=== PATIENT | male | born 1960 | race Caucasian/White ===

== ENCOUNTER 2019-04-11 17:26 | Outpatient (CLI) | payer BC, SELFPAY ==
--- NOTE | ~2019-04-11 | XR_ITS ---
EXAMINATION: XR thoracic spine 3V EXAM DATE: 04/11/2019 18:14 INDICATION: Thoracic pain. TECHNIQUE: Frontal and lateral projections of the thoracic spine. Lateral projection Cervical thora cic spine. There are no prior studies for comparison. FINDINGS: There is mild diffuse thoracic disc disease, there are mild to moderate-sized midthoracic and osteophytes. The vertebral bodies are aligned in the AP dimension. Paraspinal soft tissue is unre markable. There are no bony erosions identified. IMPRESSION: Mild thoracic spondylosis. Reviewed, dictated and finalized at location A. ETING SENIOR RECRUITER IMPRESSION: Mild thoracic spondylosis.
--- NOTE | ~2019-04-11 | XR_ITS ---
EXAMINATION: XR_CERV2-3V_CR EXAM DATE: 04/11/2019 18:13 INDICATION: Chronic cervical, thoracic and lower back pain. TECHNIQUE: Frontal and lateral projections of the cervicothoracic spine. There is no prior study fo r comparison. FINDINGS: There are large bridging endplate osteophytes at the C5-6 and 6-7 levels. There is mild to moderate disc disease from C2 through C6. There is overall moderate cervical arthropathy and mild to moderate uncovertebral joint disease. Lung apices are clear. The odontoid process is intact. The la teral masses of C1 line up with C2. Prevertebral soft tissue and pre-dens space are within normal link its. IMPRESSION: Mild to moderate cervical spondylosis. Reviewed, dictated and finalized at location A. ECH PRODUCTION SPECIALIST
--- NOTE | ~2019-04-11 | XR_ITS ---
EXAMINATION: XR lumbar spine 2-3V EXAM DATE: 04/11/2019 18:15 INDICATION: Low back pain. TECHNIQUE: Lumber spine frontal, lateral, lateral L5-S1 projections for interpretation. There is no prior study for comparison. FINDINGS: Mild to moderate diffuse lumbar disc disease. There is 2-3 mm retrolisthesis L2 on L3. The re is overall moderate lumbar facet arthropathy. There is aortic arterial sclerosis. Sacrum, sacroili ac joints, sacral arcuate lines are intact. Paraspinal soft tissue is unremarkable. IMPRESSION: 1. Mild to moderate lumbar disc disease. 2. Moderate facet arthropathy. Reviewed, dictated and finalized at location A. ITION TECHNICIAN
--- NOTE | ~2019-04-11 | CT_ITS ---
EXAMINATION: CT lung screening EXAM DATE: 04/11/2019 18:12 INDICATION: Personal history of nicotine dependence. TECHNIQUE: Spiral low dose CT of the chest without contrast. Axial, coronal and sagittal images were reviewed. The dose-length product (DLP) for this examination was 149.39 mGy-cm. The exposure was t ailored according to patient size (auto mA exposure control), and iterative reconstruction (ASIR) was used as additional dose reduction technique. Comparison is made to prior examination from 2018. FINDINGS: There is patchy bilateral lower lobe reticulonodular airspace disease, appearance consiste nt with acute infection, pneumonia. Small apical nodules 3 mm or less unchanged, post infectious. Tr acheobronchial tree is patent. There is no mediastinal, hilar or axillary lymphadenopathy. There are no pleural or pericardial effusions. There is no pneumothorax. Heart normal in size. There is mild coronary arterial calcification, arterial sclerosis. Upper abdomen is unremarkable. Cervica l ribs. T4 vertebral body is sclerotic, but less so than on previous examination. IMPRESSION: 1. Lung-RADS category 2S, benign appearance or behavior (<1% chance of malignancy); recommend contin ued LDCT screening in 1 year. 2. Patchy bibasilar pneumonia. 3. Diffuse T4 vertebral body sclerosis less apparent on this exam, could be metastatic. Reviewed, dictated and finalized at location A. ING SUIT MAKER IMPRESSION: 1. Lung-RADS category 2S, benign appearance or behavior (<1% chance of maligna ncy); recommend continued LDCT screening in 1 year. 2. Patchy bibasilar pneumonia. 3. Diffuse T4 vertebral body sclerosis less apparent on this exam, could be me tastatic.
== END 2019-04-11 17:27 | disposition home or self-care (01) ==
PROVIDERS: PCP Internal Medicine; Visit Provider Internal Medicine
DX: M54.2 Cervicalgia (principal); M54.6 Pain in thoracic spine; M54.5 Low back pain; Z12.2 Encounter for screening for malignant neoplasm of respiratory organs; Z87.891 Personal history of nicotine dependence
CPT/HCPCS: 72040; 72072; 72100; G0297

== ENCOUNTER 2019-04-30 11:34 | Outpatient (CLI) | payer BC, SELFPAY ==
--- NOTE | ~2019-04-30 | XR_ITS ---
EXAMINATION: XR chest 2V 04/30/2019 11:52 INDICATION: Cough, shortness of breath and history of pneumonia PROCEDURE: 2 view chest COMPARISON: Comparison to multiple prior studies sequentially, with oldest reviewed study dated 05/26. FINDINGS: The lungs are clear. The lungs are hyperinflated which is consistent with, but not diagnost ic of chronic obstructive pulmonary disease. The cardiomediastinal silhouette is within normal limits . There are no pleural effusions. There is no pneumothorax suspected. IMPRESSION: 1: NO ACUTE CARDIOPULMONARY DISEASE. Reviewed, dictated and finalized at location A.
== END 2019-04-30 11:35 | disposition home or self-care (01) ==
LOC: CHSIMG 11:35
PROVIDERS: PCP Internal Medicine; Visit Provider Internal Medicine
DX: J44.1 Chronic obstructive pulmonary disease with (acute) exacerbation (principal)
CPT/HCPCS: 71046

== ENCOUNTER 2020-07-02 10:16 | Outpatient (CLI) | payer BC, SELFPAY ==
--- NOTE | ~2020-07-02 | CT_ITS ---
EXAMINATION: CT lung screening DATE: 07/02/2020 10:36 INDICATION: Personal history of nicotine dependence, current smoker with 78 pack year history TECHNIQUE: Computed tomography (CT) of the chest was performed without intravenous contrast. The dose -length product (DLP) was 235.15 mGy-cm. Automated exposure control and iterative reconstruction tech iVideosongs were employed. COMPARISON: 04/11/2019 FINDINGS: Stable nodules of the lung apices measure up to 2 mm. No new pulmonary nodules are identifi ed. There is mild emphysema. The lungs are free of focal airspace opacities. There is no pleural effu huy or pneumothorax. No pathologically enlarged thoracic lymph nodes are identified. The heart size is normal. Calcified atherosclerosis is noted. There is mild thoracic spondylosis. Again noted is dif fuse sclerosis of the T4 vertebral body of unclear significance. IMPRESSION: 1. Lung-RADS category 2: Benign appearance or behavior. Continue annual screening with noncontrast lo w-dose chest CT in 12 months. Reviewed, dictated and finalized at location A. IMPRESSION: 1. Lung-RADS category 2: Benign appearance or behavior. Continue annual screeni ng with noncontrast low-dose chest CT in 12 months.
== END 2020-07-02 10:17 | disposition home or self-care (01) ==
LOC: CHSIMG 10:17
PROVIDERS: PCP Internal Medicine; Visit Provider Internal Medicine
DX: Z12.2 Encounter for screening for malignant neoplasm of respiratory organs (principal); Z87.891 Personal history of nicotine dependence
CPT/HCPCS: 71271

== ENCOUNTER 2021-07-07 09:58 | Outpatient (CLI) | payer BC, SELFPAY ==
--- NOTE | ~2021-07-07 | CT_ITS ---
EXAMINATION: CT lung screening DATE: 07/07/2021 10:27 INDICATION: Personal history of tobacco dependence. TECHNIQUE: Computed tomography (CT) of the chest was performed without intravenous contrast. The dose -length product was 196.20 mGy-cm. Automated exposure control and iterative reconstruction technique were employed. COMPARISON: CT dated 07/02/2020 FINDINGS: No thoracic lymphadenopathy. No pleural or pericardial effusion. Visualized aspects of the upper abdomen are unremarkable. Stable upper lobe nodules measuring 2 mm. No endobronchial lesions. M ild paraseptal emphysema. No focal airspace consolidation. No endobronchial lesions. Mild thoracic sp ondylosis. Stable sclerosis of the T4 vertebral body IMPRESSION: 1. Lung-RADS category 2: Benign appearance or behavior. Continue annual screening with noncontrast lo w-dose chest CT in 12 months. Reviewed, dictated and finalized at location A. IMPRESSION: 1. Lung-RADS category 2: Benign appearance or behavior. Continue annual screeni ng with noncontrast low-dose chest CT in 12 months.
== END 2021-07-07 09:59 | disposition home or self-care (01) ==
LOC: CHSIMG 10:00
PROVIDERS: PCP Internal Medicine; Visit Provider Internal Medicine
DX: Z12.2 Encounter for screening for malignant neoplasm of respiratory organs (principal); Z87.891 Personal history of nicotine dependence
CPT/HCPCS: 71271

== ENCOUNTER 2021-07-22 01:30 | Day surgery (SDC) | payer BC, SELFPAY ==
[2021-07-16 13:12] VITALS: BMI 27.7
--- NOTE | 2021-07-21 15:51 | WPDANESEPPF ---
Anes - Initial Pre Proc Eval Procedure: Operation Date: 07/22/21 10:00 Proposed Procedures p Esophagogastroduodenoscopy & Colonoscopy - Carlos White DO Date/Time: 07/21/21 15:51 Surgeon: Carlos White DO Pre Op Diagnosis: GERD, Diverticulitis Patient Data Age: 60 Gender: M Height: 1.85 m Weight: 95.3 kg Allergies Allergy/AdvReac Type Severity Reaction Status Date / Time codeine Allergy Mild Difficulty Verified 07/22/21 09:33 Breathing penicillin G Allergy Mild Rash Verified 07/22/21 09:33 Home Medications Medication Instructions Recorded Confirmed Type albuterol sulfate 90 mcg/actuation 1 inh inhalation DAILY 07/16/21 07/22/21 History aerosol inhaler aspirin 81 mg tablet,delayed 81 mg PO DAILY 07/16/21 07/22/21 History release baclofen 10 mg tablet 10 mg PO TID 07/16/21 07/22/21 History duloxetine 60 mg capsule,delayed 60 mg PO DAILY 07/16/21 07/22/21 History release fluticasone propionate 50 1 ea intranasal DAILY 07/16/21 07/22/21 History mcg/actuation nasal spray,suspension gabapentin 300 mg capsule 300 mg PO TID 07/16/21 07/22/21 History losartan 100 mg tablet 0.5 tablet PO DAILY 07/16/21 07/22/21 History montelukast 10 mg tablet 10 mg PO DAILY 07/16/21 07/22/21 History omeprazole 20 mg capsule,delayed 2 cap PO DAILY 07/16/21 07/22/21 History release rosuvastatin 10 mg tablet 10 mg PO DAILY 07/16/21 07/22/21 History terazosin 10 mg capsule 1 cap PO DAILY 07/16/21 07/22/21 History Patient hx anesthesia problems: none Family hx anesthesia problems: none Results Review: All pre-operative results and documents have been reviewed as part of the pre-operative evaluation. [facility] Past Medical History Medical History (Updated 07/22/21 @ 10:53 by Carlos White DO) COPD (chronic obstructive pulmonary disease) Hyperlipidemia Hypertension LEIGHA (obstructive sleep apnea) Social History Social History Years smoked: 40 Smoking status: Former smoker Tobacco type: cigarettes Alcohol intake: never Substance use: current Substance use type: marijuana Other substance usage details: daily marijuana use Living arrangements: with family Spiritual care concerns: No Anes - Eval Final PreProcedure Day of Procedure 07/21/21 15:51 Patient weight: overweight Heart: regular rate and rhythm Lungs: clear to auscultation Airway: Mallampati scale class II Neurological: alert and oriented Last oral intake: >/= 8 hours ASA classification: III Emergent: no Anesthetic plan: proceed Anesthesia type and monitoring: general GIVS and standard monitoring Results Review: All pre-operative results and documents have been reviewed as part of the pre-operative evaluation. Informed Consent: The patient's anesthetic plan and its attendant risks and benefits were discussed with the patient/family/POA. Questions were solicited and answers provided to the satisfaction of the patient/family/POA.
[2021-07-22 09:20] VITALS: BP 168/71; PULSE 54; RESP 18; TEMP 36.2; O2SAT 100; BMI 17.9
[2021-07-22] MEDS: LACTATED RINGERS 1,000 ML 150 ML IV CONT (09:47)
--- NOTE | 2021-07-22 10:52 | PM.IMHP ---
H&P: HPI History of Present Illness Date/Time: 07/22/21 10:52 Chief Complaint: GERD, screening for colorectal cancer Narrative: this is a 7-year-old man who presents for EGD and colonoscopy. His last colonoscopy was 10 years ago. He denies any hematochezia or melena. He does get frequent nausea and has a history of GERD. He denies any dysphagia. He was told he had a hiatal hernia on EGD about 10 years ago. Review of Systems Review of Systems: All systems reviewed & are unremarkable except as noted in HPI and below Constitutional: Constitutional: Denies chills, Denies fever(s), Denies headache(s) and Denies weight loss Eyes: Eyes: Denies change in vision ENT: Denies dizziness, Denies headache(s), Denies neck mass and Denies throat swelling Cardiovascular: Cardiovascular: Denies chest pain, Denies lightheadedness and Denies dyspnea Respiratory: Respiratory: Denies cough, Denies dyspnea and Denies wheezing Gastrointestinal: Gastrointestinal: Denies abdominal pain, Denies change in bowel habits, Denies nausea and Denies vomiting Genitourinary: Genitourinary: Denies hematuria and Denies dysuria Musculoskeletal: Musculoskeletal: Reports as per HPI Integumentary/Breasts: Skin/Breast: Reports as per HPI Neurologic: Denies dizziness and Denies headache(s) Allergic/Immunologic: Allergic/Immunologic: Denies throat swelling and Denies wheezing [facility] Past Medical History Medical History (Updated 07/22/21 @ 10:53 by Carlos White DO) COPD (chronic obstructive pulmonary disease) Hyperlipidemia Hypertension LEIGHA (obstructive sleep apnea) Social History Social History Years smoked: 40 Smoking status: Former smoker Tobacco type: cigarettes Alcohol intake: never Substance use: current Substance use type: marijuana Other substance usage details: daily marijuana use Living arrangements: with family Spiritual care concerns: No Meds Home Medications and Allergies Home Medications Medication Instructions Recorded Confirmed Type albuterol sulfate 90 mcg/actuation 1 inh inhalation DAILY 07/16/21 07/22/21 History aerosol inhaler aspirin 81 mg tablet,delayed 81 mg PO DAILY 07/16/21 07/22/21 History release baclofen 10 mg tablet 10 mg PO TID 07/16/21 07/22/21 History duloxetine 60 mg capsule,delayed 60 mg PO DAILY 07/16/21 07/22/21 History release fluticasone propionate 50 1 ea intranasal DAILY 07/16/21 07/22/21 History mcg/actuation nasal spray,suspension gabapentin 300 mg capsule 300 mg PO TID 07/16/21 07/22/21 History losartan 100 mg tablet 0.5 tablet PO DAILY 07/16/21 07/22/21 History montelukast 10 mg tablet 10 mg PO DAILY 07/16/21 07/22/21 History omeprazole 20 mg capsule,delayed 2 cap PO DAILY 07/16/21 07/22/21 History release rosuvastatin 10 mg tablet 10 mg PO DAILY 07/16/21 07/22/21 History terazosin 10 mg capsule 1 cap PO DAILY 07/16/21 07/22/21 History Allergies Allergy/AdvReac Type Severity Reaction Status Date / Time codeine Allergy Mild Difficulty Verified 07/22/21 09:33 Breathing penicillin G Allergy Mild Rash Verified 07/22/21 09:33 Vital Signs Vital Signs - 24 hr 07/22/21 09:20 Temperature 36.2 C L Pulse Rate 54 L Respiratory Rate 18 Blood Pressure 168/71 H Pulse Oximetry 100 Oxygen Delivery Room Air Exam Const: General: no acute distress and alert Orientation/consciousness: patient oriented x3 HENMT: Head: normocephalic and atraumatic Ears: hearing grossly normal bilaterally General nose exam: Normal nares present Mouth: Yes Normal oral and palatal mucosa present Eyes: Periorbital: periorbital findings normal Sclera: sclerae normal EOM: EOMs intact bilaterally Neck: Neck: normal visual inspection, no lymphadenopathy and trachea midline Chest: Chest palpation & inspection: normal inspection of the chest Resp: Effort & Inspection: normal respiratory effort Auscultation: clear to auscultation bilaterally Cardi
[2021-07-22] MEDS: BENZOCAINE (*SP) 60 ML SPRAY CAN (HURRICAINE) 1 SPRAY MUCOUS MEM (10:57)
--- NOTE | 2021-07-22 11:47 | SUR.OPER ---
EGD START 1059, END 1102 COLONOSCOPY START 1108, END 1146
[2021-07-22 11:51] VITALS: BP 112/54; PULSE 48; RESP 22; O2SAT 97
[2021-07-22 12:01] VITALS: BP 143/59; PULSE 67; RESP 17; O2SAT 98
[2021-07-22 12:11] VITALS: BP 142/64; PULSE 62; RESP 18; O2SAT 98
== END 2021-07-22 12:21 | disposition home or self-care (01) ==
PROVIDERS: PCP Internal Medicine; Visit Provider Surgery
PROC: 0DJ08ZZ Inspection of Upper Intestinal Tract, Via Natural or Artificial Opening Endoscopic (ICD-10-PCS; CPT 43235; principal; 2021-07-22 10:00)
DX: Z12.11 Encounter for screening for malignant neoplasm of colon (principal); K57.30 Diverticulosis of large intestine without perforation or abscess without bleeding; K21.9 Gastro-esophageal reflux disease without esophagitis; K44.9 Diaphragmatic hernia without obstruction or gangrene; J44.9 Chronic obstructive pulmonary disease, unspecified; E78.5 Hyperlipidemia, unspecified; I10 Essential (primary) hypertension; G47.33 Obstructive sleep apnea (adult) (pediatric); Z87.891 Personal history of nicotine dependence; F12.90 Cannabis use, unspecified, uncomplicated; Z79.51 Long term (current) use of inhaled steroids; Z79.82 Long term (current) use of aspirin
CPT/HCPCS: 45378; 43235; J2704; J7120

== ENCOUNTER 2021-12-13 10:12 | Outpatient (CLI) | payer BC, SELFPAY ==
--- NOTE | ~2021-12-13 | CT_ITS ---
EXAMINATION: CT abdomen pelvis w con DATE: 12/13/2021 11:22 INDICATION: Pelvic pain. Fever. TECHNIQUE: Computed tomography (CT) of the abdomen and pelvis was performed with 100 mL Omnipaque 350 intravenous contrast. Automated exposure control and iterative reconstruction technique were employe d. The dose-length product was 659.63 mGy-cm. COMPARISON: PET CT 04/03/2018 FINDINGS: The visualized portions of the lung bases demonstrate mild atelectasis. No pleural effusion . The heart size is normal. No pericardial effusion. There is a small sliding hiatal hernia. There is a 4 mm cyst in the liver. The gallbladder, spleen, pancreas, and adrenal glands are normal. There is cortical thinning in the kidneys. There are scattered diverticula in the colon. There is fat strandi ng around the descending colon. There is wall thickening of the descending and sigmoid colon, consist ent with colitis. There are no dilated loops of bowel. There are changes of appendectomy. There is no significant stenosis of celiac axis or superior mesenteric artery. There are no pathologically enlar ged lymph nodes. There is trace pelvic ascites. There is moderate lumbar spondylosis. IMPRESSION: 1. Colitis involving the descending and sigmoid colon. Reviewed, dictated and finalized at location A. PSY PATHOLOGIST
[2021-12-13 10:34] LABS: Basophils Absolute Auto 0.05 K/mm3 (0.00-0.10); Basophils Percent Auto 0.3 % (0.0-1.0); Eosinophils Absolute Auto 0.16 K/mm3 (0.02-0.50); Eosinophils Percent Auto 1.1 % (1.0-6.0); Hematocrit 38.1 % (40.0-54.0); Hemoglobin 13.2 g/dL (14.0-18.0); Immature Granulocyte Absolute 0.06 K/mm3 (0.00-0.00); Immature Granulocyte Percent A 0.4 % (0.0-0.0); Lymphocytes Absolute Auto 1.71 K/mm3 (1.10-4.50); Lymphocytes Percent Auto 11.5 % (18.0-42.0); Mean Corpuscular HGB Conc 34.6 g/dL (32.0-36.0); Mean Corpuscular Hemoglobin 33.7 pg (27.0-31.0); Mean Corpuscular Volume 97.2 fL (78.0-102.0); Mean Platelet Volume 10.2 fl (8.7-11.0); Monocytes Percent Auto 8.8 % (2.0-11.0); Neutrophils Absolute Auto 11.5 K/mm3 (1.7-7.2); Neutrophils Percent Auto 77.9 % (50.0-70.0); Platelet Count Result 278 K/mm3 (150-420); Red Blood Count 3.92 M/mm3 (4.70-6.10); Red Cell Distribution Width 12.2 % (11.6-14.4); White Blood Count 14.8 K/mm3 (4.8-10.8)
[2021-12-13 10:49] LABS: Alanine Aminotransferase 21 U/L (16-63); Albumin Level 3.8 g/dL (3.4-5.0); Alkaline Phosphatase 58 U/L (46-116); Amylase 38 U/L (25-115); Anion Gap 4 mmol/L (8-16); Aspartate Amino Transferase 14 U/L (15-37); Bilirubin,Total 0.6 mg/dL (0.00-1.00); Blood Urea Nitrogen 16 mg/dL (7-18); CRP 1.2 mg/dL (0.0-0.9); Calcium 9.2 mg/dL (8.5-10.1); Carbon Dioxide 30 mmol/L (21-32); Chloride 107 mmol/L (98-108); Estimated Glomerular Filt Rate > 60; Glucose 107 mg/dL (70-99); Lipase 64 U/L (73-393); Osmolality Calculated 293 mOsm/kg (285-295); Potassium 3.6 mmol/L (3.5-5.1); Sodium 141 mmol/L (136-145); Total Protein 7.5 g/dL (6.4-8.2)
[2021-12-13 11:34] LABS: Erythrocyte Sedimentation Rate 34 mm/hr (0-20)
[2021-12-13 16:52] LABS: Immature Reticulocyte Fraction 6.7 % (2.0-16.52); Reticulocyte Hemoglobin Conten 37.3 pg (28.0-35.0); Reticulocyte Percent 1.21 % (0.50-1.50); Reticulocytes Absolute 0.05 M/mm3 (0.02-0.1)
[2021-12-13 17:12] LABS: Ferritin 231 ng/mL (26-388); Iron 39 ug/dL (65-175)
[2021-12-19 13:35] LABS: ANCA Screen Negative (Negative); Myeloperoxidase Ab <1.0 AI (<1.0); Proteinase-3 Ab <1.0 AI (<1.0); S cerevisiae Ab (IgA) 11.8 U (<=20.0); S cerevisiae Ab (IgG) 24.1 U (<=20.0)
== END 2021-12-13 10:13 | disposition home or self-care (01) ==
LOC: CHSLAB 10:15
PROVIDERS: PCP Internal Medicine; Visit Provider Internal Medicine
DX: R50.9 Fever, unspecified (principal); K92.1 Melena; R10.32 Left lower quadrant pain; R11.0 Nausea; D64.9 Anemia, unspecified; R94.5 Abnormal results of liver function studies
CPT/HCPCS: 36415; 74177; 80053; 82150; 82728; 83540; 83690; 85025; 85046; 85652; 86036; 86140; 86671; Q9967

== ENCOUNTER 2021-12-16 07:58 | Outpatient (CLI) | payer BC, SELFPAY ==
[2021-12-16 08:08] LABS: Basophils Absolute Auto 0.07 K/mm3 (0.00-0.10); Basophils Percent Auto 0.8 % (0.0-1.0); Eosinophils Percent Auto 4.5 % (1.0-6.0); Hemoglobin 12.3 g/dL (14.0-18.0); Immature Granulocyte Absolute 0.03 K/mm3 (0.00-0.00); Immature Granulocyte Percent A 0.3 % (0.0-0.0); Lymphocytes Absolute Auto 2.59 K/mm3 (1.10-4.50); Lymphocytes Percent Auto 28.9 % (18.0-42.0); Mean Corpuscular HGB Conc 33.2 g/dL (32.0-36.0); Mean Corpuscular Hemoglobin 33.2 pg (27.0-31.0); Mean Platelet Volume 9.8 fl (8.7-11.0); Monocytes Absolute Auto 0.98 K/mm3 (0.10-0.90); Monocytes Percent Auto 10.9 % (2.0-11.0); Neutrophils Absolute Auto 4.9 K/mm3 (1.7-7.2); Neutrophils Percent Auto 54.6 % (50.0-70.0); Platelet Count Result 246 K/mm3 (150-420)
[2021-12-16 08:36] LABS: Alanine Aminotransferase 21 U/L (16-63); Albumin Level 3.7 g/dL (3.4-5.0); Alkaline Phosphatase 53 U/L (46-116); Anion Gap 7 mmol/L (8-16); Aspartate Amino Transferase 14 U/L (15-37); Bilirubin,Total 0.2 mg/dL (0.00-1.00); Blood Urea Nitrogen 14 mg/dL (7-18); Calcium 9.1 mg/dL (8.5-10.1); Carbon Dioxide 30 mmol/L (21-32); Chloride 107 mmol/L (98-108); Estimated Glomerular Filt Rate > 60; Glucose 107 mg/dL (70-99); Osmolality Calculated 298 mOsm/kg (285-295); Potassium 3.9 mmol/L (3.5-5.1); Sodium 144 mmol/L (136-145); Total Protein 6.7 g/dL (6.4-8.2)
== END 2021-12-16 07:59 | disposition home or self-care (01) ==
LOC: CHSLAB 07:59
PROVIDERS: PCP Internal Medicine; Visit Provider Internal Medicine
DX: D64.9 Anemia, unspecified (principal); R94.5 Abnormal results of liver function studies
CPT/HCPCS: 36415; 80053; 85025

== ENCOUNTER 2021-12-24 11:20 | Outpatient (CLI) | payer BC, SELFPAY ==
[2021-12-24 11:37] LABS: Basophils Absolute Auto 0.04 K/mm3 (0.00-0.10); Basophils Percent Auto 0.7 % (0.0-1.0); Hematocrit 40.1 % (40.0-54.0); Hemoglobin 13.5 g/dL (14.0-18.0); Immature Granulocyte Absolute 0.01 K/mm3 (0.00-0.00); Immature Granulocyte Percent A 0.2 % (0.0-0.0); Lymphocytes Absolute Auto 2.14 K/mm3 (1.10-4.50); Lymphocytes Percent Auto 35.5 % (18.0-42.0); Mean Corpuscular HGB Conc 33.7 g/dL (32.0-36.0); Mean Corpuscular Hemoglobin 33.3 pg (27.0-31.0); Mean Platelet Volume 10.1 fl (8.7-11.0); Monocytes Absolute Auto 0.78 K/mm3 (0.10-0.90); Neutrophils Absolute Auto 2.8 K/mm3 (1.7-7.2); Neutrophils Percent Auto 45.6 % (50.0-70.0); Platelet Count Result 245 K/mm3 (150-420); Red Blood Count 4.05 M/mm3 (4.70-6.10); Red Cell Distribution Width 12.3 % (11.6-14.4)
[2021-12-24 12:14] LABS: Alanine Aminotransferase 40 U/L (16-63); Albumin Level 3.8 g/dL (3.4-5.0); Alkaline Phosphatase 48 U/L (46-116); Anion Gap 4 mmol/L (8-16); Aspartate Amino Transferase 22 U/L (15-37); Bilirubin,Total 0.3 mg/dL (0.00-1.00); Blood Urea Nitrogen 9 mg/dL (7-18); Calcium 9.1 mg/dL (8.5-10.1); Carbon Dioxide 31 mmol/L (21-32); Chloride 109 mmol/L (98-108); Estimated Glomerular Filt Rate > 60; Glucose 117 mg/dL (70-99); Osmolality Calculated 297 mOsm/kg (285-295); Sodium 144 mmol/L (136-145); Total Protein 6.8 g/dL (6.4-8.2)
== END 2021-12-24 11:21 | disposition home or self-care (01) ==
LOC: CHSLAB 11:22
PROVIDERS: PCP Internal Medicine; Visit Provider Internal Medicine
DX: K57.92 Diverticulitis of intestine, part unspecified, without perforation or abscess without bleeding (principal)
CPT/HCPCS: 36415; 80053; 85025

== ENCOUNTER 2022-10-13 10:46 | Outpatient (CLI) | payer MEDICARE, SELFPAY ==
--- NOTE | 2022-10-19 13:16 | WPDPFTINT ---
PFT Procedure Performed PFT Procedure Performed Spirometry with Pre/Post Bronchodilator Plethysmography (Lung Vol) Diffusing Cap (DLCO) Flow Vol Loop PFT Interpretation DOS: 10/13/2022 REQUESTING: Fidencio Pandey APRN REASON FOR TESTING: emphysema PULMONARY FUNCTION TESTS Results are moderately reproducible. There are some flow volume loops showing incompletion of the inspiratory limb. Spirometry: FEV1 is 3.42 L, 90% predicted, normal. FVC is 4.19 L, 98% predicted, normal. FEV1/FVC ratio is 73%, low end of normal. After bronchodilator there is a 6% increase in FEV1, 3.61 L and there is a 4% increase in the FVC, 4.89 L. These are not statistically significant improvements. The OYK01-14% is 65% predicted, 2.60 L and increases by 20%, now 79% predicted, 3.13 L. Lung volumes: total lung capacity is 8.38 L, 114%, upper limit normal. Residual volume 3.60 L, 139%. RV/TLC is 43% consistent with mild air trapping. Airway resistance 446%. Diffusion: DLCO is 20.5, 76%, normal. DLCO/VA is 3.17, 84%, normal. Flow volume loop: The inspiratory limbs have early completion, and some of the loops do not return to baseline. IMPRESSION: This study shows suspected small airways pattern with response to bronchodilator in the small airways, mild air trapping, normal diffusion. No prior studies for comparison. Millie Hill MD
== END 2022-10-13 10:47 | disposition home or self-care (01) ==
LOC: CHSCARD 10:47
PROVIDERS: PCP Family Medicine; Visit Provider Nurse Practitioner Family
DX: J43.9 Emphysema, unspecified (principal); R94.2 Abnormal results of pulmonary function studies
CPT/HCPCS: 94060; 94726; 94729

== ENCOUNTER 2022-10-19 09:00 | Outpatient (CLI) | payer MEDICARE, SELFPAY ==
[2022-10-19 09:22] LABS: Basophils Absolute Auto 0.05 K/mm3 (0.00-0.10); Basophils Percent Auto 0.6 % (0.0-1.0); Eosinophils Percent Auto 4.6 % (1.0-6.0); Hematocrit 38.2 % (40.0-54.0); Hemoglobin 13.1 g/dL (14.0-18.0); Immature Granulocyte Absolute 0.03 K/mm3 (0.00-0.00); Immature Granulocyte Percent A 0.3 % (0.0-0.0); Lymphocytes Percent Auto 28.8 % (18.0-42.0); Mean Corpuscular HGB Conc 34.3 g/dL (32.0-36.0); Mean Corpuscular Hemoglobin 33.7 pg (27.0-31.0); Mean Corpuscular Volume 98.2 fL (78.0-102.0); Mean Platelet Volume 9.9 fl (8.7-11.0); Monocytes Absolute Auto 0.93 K/mm3 (0.10-0.90); Monocytes Percent Auto 10.7 % (2.0-11.0); Neutrophils Absolute Auto 4.8 K/mm3 (1.7-7.2); Platelet Count Result 233 K/mm3 (150-420); Red Blood Count 3.89 M/mm3 (4.70-6.10); White Blood Count 8.7 K/mm3 (4.8-10.8)
[2022-10-19 09:36] LABS: Appearance Urine Clear (Clear); Bilirubin Urine Negative (Negative); Blood Urine Negative (Negative); Color Urine Light Yellow (Yellow); Glucose Urine UA Negative (Negative); Ketones Urine Negative (Negative); Leukocyte Esterase Ur Negative LEU/UL (Negative); Nitrate Urine Negative (Negative); Protein Urine Negative (Negative); Urobilinogen Urine 0.2 mg/dL (0.2-1.0)
[2022-10-19 10:16] LABS: Alanine Aminotransferase 25 U/L (16-63); Albumin Level 3.7 g/dL (3.4-5.0); Alkaline Phosphatase 58 U/L (46-116); Anion Gap 7 mmol/L (8-16); Aspartate Amino Transferase 11 U/L (15-37); Bilirubin,Total 0.5 mg/dL (0.00-1.00); Blood Urea Nitrogen 13 mg/dL (7-18); Calcium 9.4 mg/dL (8.5-10.1); Carbon Dioxide 29 mmol/L (21-32); Chloride 106 mmol/L (98-108); Cholesterol 149 mg/dL (0-200); Estimated Glomerular Filt Rate > 60; Free T4 Free Thyroxine 0.74 ng/dL (0.76-1.46); Glucose 98 mg/dL (70-99); HDL Direct 33 mg/dL (40-60); LDL Cholesterol Calculated 80 mg/dL (<130); Osmolality Calculated 294 mOsm/kg (285-295); Potassium 4.1 mmol/L (3.5-5.1); Sodium 142 mmol/L (136-145); Thyroid Stimulating Hormone 4.12 uIU/mL (0.36-3.74); Total Protein 6.9 g/dL (6.4-8.2); Triglycerides 182 mg/dL (0-150)
== END 2022-10-19 09:01 | disposition home or self-care (01) ==
LOC: CHSLAB 09:02
PROVIDERS: PCP Family Medicine; Visit Provider Nurse Practitioner Family
DX: I10 Essential (primary) hypertension (principal); D64.9 Anemia, unspecified
CPT/HCPCS: 36415; 80053; 80061; 84439; 84443; 85025

== ENCOUNTER 2022-12-26 10:45 | Outpatient (CLI) | payer MEDICARE, SELFPAY ==
--- NOTE | ~2022-12-26 | XR_ITS ---
EXAMINATION: XR thoracic spine 3V DATE: 12/26/2022 11:03 INDICATION: Ankylosing hyperostosis TECHNIQUE: AP, lateral and lateral swimmer's views of the thoracic spine were obtained. COMPARISON: 04/11/2019 FINDINGS: There are bridging osteophytes at multiple levels in the spine, consistent with diffuse idi opathic skeletal hyperostosis (DISH). Bone alignment is normal. There is no fracture. There is mild l oss of intervertebral disc space height at multiple levels. IMPRESSION: 1. Diffuse idiopathic skeletal hyperostosis (DISH) without acute osseous abnormality.. Reviewed, dictated and finalized at location F. OR LINUX SYSTEMS ADMINISTRATOR IMPRESSION: 1. Diffuse idiopathic skeletal hyperostosis (DISH) without acute osseous abnorm ality..
== END 2022-12-26 10:46 | disposition home or self-care (01) ==
LOC: CHSIMG 10:49
PROVIDERS: PCP Family Medicine; Visit Provider Family Medicine
DX: M48.14 Ankylosing hyperostosis [Forestier], thoracic region (principal)
CPT/HCPCS: 72072

== ENCOUNTER 2023-02-17 11:26 | Outpatient (CLI) | payer MEDICARE, SELFPAY ==
[2023-02-17 12:37] LABS: Thyroid Stimulating Hormone Reflex 2.09 u/IU/mL (0.36-3.74)
== END 2023-02-17 11:27 | disposition home or self-care (01) ==
LOC: CHSLAB 11:27
PROVIDERS: PCP Family Medicine; Visit Provider Nurse Practitioner Family
DX: D64.9 Anemia, unspecified (principal)
CPT/HCPCS: 36415; 84443

== ENCOUNTER 2023-03-28 12:06 | Outpatient (CLI) | payer MEDICARE, SELFPAY ==
--- NOTE | ~2023-03-28 | XR_ITS ---
Right Shoulder Technique: AP and scapular Y views were obtained. Clinical History: Pain Findings: No fracture or dislocation is seen. Osseous alignment is anatomic. The glenohumeral and acr omioclavicular joint spaces are preserved. Soft tissues are unremarkable. Impression: Unremarkable right shoulder radiographs. Reviewed, dictated and finalized at [facility]. T ATTENDANT Impression: Unremarkable right shoulder radiographs.
== END 2023-03-28 12:07 | disposition home or self-care (01) ==
PROVIDERS: PCP Nurse Practitioner Family; Visit Provider Nurse Practitioner Family
DX: M25.511 Pain in right shoulder (principal)
CPT/HCPCS: 73030

== ENCOUNTER 2024-08-21 08:06 | Outpatient (CLI) | payer MEDICARE, SELFPAY ==
--- OUTSIDE RECORDS SUMMARY | 2024-08-21 08:11 | XMS_ITS | Patient Health Record ---
Author Organization [facility] Address [address] [place], [place] [id number] Care Team Providers Care Front Edger Name Role Phone KIT HUFFMAN Unavailable [phone] Jeramie Kraus Unavailable Unavailable Reason For Referral No Information Plan Of Treatment No Information Insurance Providers Payer Name Payer Address Payer Phone Subscriber Number Group Number Insured Name Patient Relationship to Insured Coverage Start Date Coverage End Date [facility] ATTN CLAIMS [address] [place] [address] [id number] GURVINDER IRENE Self - patient is the insured
--- OUTSIDE RECORDS SUMMARY | 2024-08-21 08:11 | XMS_ITS | Clinical Summary ---
Author Organization [facility] Address [address] [place] [address] Care Team Providers Care Clothespin Machine Operator Name Role Phone Jeramie Kraus MD Primary Care Provider + Allergies Active Allergy Reactions Criticality Noted Date Comments Codeine Anaphylaxis High 03/27/2018 Penicillins Rash Low 03/27/2018 Medications nicotine polacrilex (NICORETTE) 4 mg Gum by See Admin Instructions route every 2 hours as needed for Smoking Cessation. Active rosuvastatin (CRESTOR) 10 mg tablet Take 10 mg by mouth daily at bedtime. Active baclofen (LIORESAL) 10 mg tablet Take 10 mg by mouth 3 times daily as needed for Pain. Active gabapentin (NEURONTIN) 300 mg capsule Take 300 mg by mouth 3 times daily. Active terazosin (HYTRIN) 10 mg capsule Take 10 mg by mouth daily at bedtime. Active losartan (COZAAR) 100 mg tablet Take 100 mg by mouth daily. Active furosemide (LASIX) 40 mg tablet Take 40 mg by mouth daily. Active omeprazole (PriLOSEC) 20 mg Capsule, Delayed Release(E.C.) Take 20 mg by mouth daily. Active albuterol sulfate 90 mcg/actuation metered powder inhaler Take by inhalation. Active aspirin (ECOTRIN EC) 81 mg Tablet, Delayed Release (E.C.) Take 81 mg by mouth daily. Active montelukast (SINGULAIR) 10 mg tablet Take 10 mg by mouth daily at bedtime. Active HYDROcodone-arnie taminophen (NORCO) 5-325 mg tablet Take 1 Tablet by mouth every 4 hours as needed for Pain, Moderate. Active glucosamine-cho ndroitin (ARTHX DS) 500-400 mg Capsule Take 1 Capsule by mouth. Active multivitamin (DAILY-HILARIO) tablet Take 1 Tablet by mouth daily. Active Jbjec-4-CRJ-EPA -Fish Oil (FISH OIL) 1,000 mg (120 mg-180 mg) Capsule Take by mouth. Activ e vitamin B complex-vitamin C-folic acid (NEPHROCAP) 1 mg Capsule Take 1 Capsule by mouth daily. Active naproxen sodium (ALEVE) 220 mg Tablet Take 220 mg by mouth every 4 hours as needed for Pain, Moderate. Active loratadine/pseu doephedrine (CLARITIN-D 12 HOUR ORAL) Take by mouth. 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 Cancer, metastatic to bone 03/27/2018 Family History * Patient is adopted Medical History Relation Name Comments Aneurysm Father Cancer Father prostate Hypertension Father Kidney Disease Father Prostate Cancer Father Stroke Father Lung Cancer Mother Relation Name Status Comments Father Mother Social History Tobacco Use Types Packs/Day Years Used Date Smoking Tobacco: Former Cigarettes 2 37 0 03/06/1981 - 03/06/2018 Smokeless Tobacco: Never Alcohol Use Standard Drinks/Week Comments Yes 0 (1 standard drink = 0.6 oz pur e alcohol) rarely Sex and Gender Information Value Date Recorded Sex Assigned at Not on file Legal Sex Male 12:20 PM WHEEL INSTALLER Gender Identity Not on file Sexual Orientation Not on file Occupation Industry Job Start Date Job End Date Not on file Not on file Not on file Not on file Last Filed Vital Signs Vital Sign Reading Time Taken Comments Blood Pressure 158/81 05/08/2018 2:48 PM CDT Pulse 65 05/08/2018 2:48 PM CDT Temperature 36.9 C (98.5 F) 04/06/2018 10:08 AM WHEEL INSTALLER Respiratory Rate 18 04/06/2018 10:08 AM WHEEL INSTALLER Oxygen Saturation 96% 04/06/2018 10:08 AM WHEEL INSTALLER Inhaled Oxygen Concentration - - Weight 102.1 kg (225 lb) 05/08/2018 2:48 PM CDT Height 185.4 cm (6' 1) 05/08/2018 2:48 PM CDT Body Mass Index 29.69 05/08/2018 2:48 PM CDT Plan of Treatment Health Maintenance Due Date Last Done Comments DTAP/TDAP/TD VACCINES (1 - Tdap) 1980 ZOSTER VACCINE (1 of 2) 1980 COLORECTAL SCREENING 2006 Colorectal Cancer Screening 2006 FIT-DNA Q 3 years 2006 FIT/FOBT Q 1 year 2006 Flex Sig/CT Colonography Q 5 years 2006 INFLUENZA VACCINE (#1) 2024 RSV VACCINE (60+ or ) (1 - 1-dose 75+ series) 2036 Insurance BCBS BLUE PREFERRED Care Teams Clothespin Machine Operator Relationship Specialty Start Date End Date Jeramie Kraus MD [address] [place] [address] PCP - General Internal Medicine 03/23/18
--- OUTSIDE RECORDS SUMMARY | 2024-08-21 08:11 | XMS_ITS | Clinical Summary ---
Author Organization [facility] Address [address] [place] [address] Care Team Providers Care Visual Education Teacher Name Role Phone Jeramie Kraus MD Primary Care Provider [phone] Allergies Active Allergy Reactions Criticality Noted Date Comments Codeine Anaphylaxis High 07/17/2015 Penicillins Rash Low 07/17/2015 Medications loratadine-pseu doephedrine ER 10-240 MG 24 hr tablet Active Albuterol Sulfate (PROAIR RESPICLICK) 108 (90 Base) MCG/ACT AEROSOL POWDER, BREATH ACTIVATED Active aspirin EC 81 MG tablet Take 81 mg by mouth daily. Active B Uiffqox-D-Ymutl Acid (RENAL) 1 MG Cap Take 1 capsule by mouth daily. Active baclofen 10 MG tablet Take 10 mg by mouth every 8 (eight) hours as needed. Active furosemide 40 MG tablet Take 40 mg by mouth daily. Active gabapentin 300 MG capsule Take 300 mg by mouth 3 (three) times daily. Active glucosamine-cho ndroitin 500-400 MG Cap Take 1 capsule by mouth. Active hydrocodone-arnie taminophen 10-325 MG tablet 0 08/08/2018 Active losartan 100 MG tablet Take 50 mg by mouth daily. Active montelukast 10 MG tablet Take 10 mg by mouth. Active multivitamin tablet Take 1 tablet by mouth daily. Active naproxen sodium 220 MG tablet Take 220 mg by mouth every 4 (four) hours as needed. Active nicotine polacrilex 4 MG Gum gum by Other route every 2 (two) hours as needed. Active omega-3 fatty acid 1000 MG capsule Active omeprazole 20 MG capsule Take 20 mg by mouth daily. Active rosuvastatin 10 MG tablet Take 10 mg by mouth. Active Terazosin HCl 10 MG Cap Take 10 mg by mouth. Active ferrous sulfate, 65 mg elemental, 325 (65 FE) MG tablet Take 650 mg by mouth daily with breakfast. Active Active Problems No known active problems Social History Tobacco Use Types Packs/Day Years Used Date Smoking Tobacco: Every Day Cigarettes Smokeless Tobacco: Never Alcohol Use Standard Drinks/Week Comments Yes 0 (1 standard drink = 0.6 oz pur e alcohol) OCCASIONALLY Sex and Gender Information Value Date Recorded Sex Assigned at Not on file Legal Sex Male 4:54 PM CDT Gender Identity Not on file Sexual Orientation Not on file Last Filed Vital Signs Vital Sign Reading Time Taken Comments Blood Pressure 148/54 10/29/2018 8:36 AM CDT Pulse 80 10/29/2018 8:36 AM CDT Temperature 36.6 C (97.9 F) 10/11/2018 11:40 AM CDT Respiratory Rate 16 10/11/2018 12:29 PM CDT Oxygen Saturation 97% 10/11/2018 12:29 PM CDT Inhaled Oxygen Concentration - - Weight 99.5 kg (219 lb 6.4 oz) 10/29/2018 8:36 A M CDT Height 185.4 cm (6' 1) 10/29/2018 8:36 AM CDT Body Mass Index 28.95 10/29/2018 8:36 AM CDT Plan of Treatment Health Maintenance Due Date Last Done Comments Colorectal Cancer Screening Colonoscopy (10 Years) 1961 Annual Physical 1964 Hepatitis C 07/23/1979 DTaP, Tdap and Td Vaccines ( 1 - Tdap) 1980 Pneumococcal Vaccine: 50+ Ye ars (1 of 2 - PCV) 1980 Zoster Vaccines (1 of 2) 07/23/2011 COVID-19 Vaccine ( - 2023-2 5 season) 2023 RSV Immunization or 60+ Years (1 - 1-dose 75+ series) 2036 Meningococcal B Vaccine Aged Out No l onger eligible based on patient's age to complete this topic Meningococcal Vaccine Aged Out No danny keily eligible based on patient's age to complete this topic RSV Immunizations Under 20 Months Aged Out No longer eligible based on patient's age to complete this topic Insurance BLUE CROSS BLUE SHIELD BLUE CROSS BLUE SHIELD Care Teams Visual Education Teacher Relationship Specialty Start Date End Date Jeramie Kraus MD [address] [place] [address] PCP - General INTERNAL MEDICINE 08/17/18
[2024-08-21 08:15] LABS: Hematocrit 39.7 % (40.0-54.0); Hemoglobin 13.7 g/dL (14.0-18.0); Immature Granulocyte Percent A 0.3 % (0.0-0.0); Lymphocytes Absolute Auto 2.84 K/mm3 (1.10-4.50); Mean Corpuscular HGB Conc 34.5 g/dL (32-36); Mean Corpuscular Hemoglobin 33.5 pg (27.0-31.0); Mean Corpuscular Volume 97.1 fL (78.0-102.0); Nucleated Red Blood Cells Absolute Auto 0.00 K/mm3 (0.00-0.00); Nucleated Red Blood Cells Perc 0.0 % (0-0.0); Platelet Count Result 257 K/mm3 (150-420); Red Blood Count 4.09 M/mm3 (4.70-6.10); White Blood Count 7.7 K/mm3 (4.8-10.8)
[2024-08-21 08:25] LABS: Hemoglobin A1C 5.5 % (<5.7)
[2024-08-21 08:46] LABS: Alanine Aminotransferase 26 U/L (6-50); Albumin Level 4.1 g/dL (3.5-5.1); Alkaline Phosphatase 52 U/L (38-126); Anion Gap 4 mmol/L (4-12); Aspartate Amino Transferase 28 U/L (17-59); Bilirubin,Total 0.4 mg/dL (0.2-1.3); Calcium 9.3 mg/dL (8.4-10.2); Carbon Dioxide 29 mmol/L (22-30); Chloride 108 mmol/L (98-107); Cholesterol 175 mg/dL (0-200); Glucose 96 mg/dL (65-110); HDL Direct 32 mg/dL; Potassium 4.4 mmol/L (3.4-5.0); Sodium 141 mmol/L (137-145); Triglycerides 224 mg/dL (<150)
[2024-08-21 08:47] LABS: Blood Urea Nitrogen 13 mg/dL (9-20); Estimated Glomerular Filt Rate > 60; Osmolality Calculated 292 mOsm/kg (285-295); Total Protein 6.8 g/dL (6.3-8.2)
[2024-08-21 09:21] LABS: Ferritin 236.00 ng/mL (11.1-264)
[2024-08-21 10:11] LABS: Iron 100 ug/dL (49-181)
[2024-08-21 10:21] LABS: Percent Iron Saturation 35 % (20-50)
[2024-08-21 10:25] LABS: Thyroid Stimulating Hormone Reflex 2.840 uIU/mL (0.465-4.68)
== END 2024-08-21 08:07 | disposition home or self-care (01) ==
LOC: CHSLAB 08:07
PROVIDERS: PCP Family Medicine; Visit Provider Nurse Practitioner Family
DX: D64.9 Anemia, unspecified (principal); Z13.1 Encounter for screening for diabetes mellitus; I10 Essential (primary) hypertension; E78.5 Hyperlipidemia, unspecified
CPT/HCPCS: 36415; 80053; 80061; 82728; 83036; 83540; 83550; 84443; 85025

== ENCOUNTER 2024-09-23 12:40 | Outpatient (CLI) | payer MEDICARE, SELFPAY ==
--- OUTSIDE RECORDS SUMMARY | 2024-09-23 13:21 | XMS_ITS | Clinical Summary ---
Author Organization [facility] Address [address] [place] [address] Care Team Providers Care Supervisor Typesetting Name Role Phone Jeramie Kraus MD Primary Care Provider [phone] Allergies Active Allergy Reactions Criticality Noted Date Comments Codeine Anaphylaxis High 07/17/2015 Penicillins Rash Low 07/17/2015 Medications loratadine-pseu doephedrine ER 10-240 MG 24 hr tablet Active Albuterol Sulfate (PROAIR RESPICLICK) 108 (90 Base) MCG/ACT AEROSOL POWDER, BREATH ACTIVATED Active aspirin EC 81 MG tablet Take 81 mg by mouth daily. Active B Oxmwxwc-K-Qsfwd Acid (RENAL) 1 MG Cap Take 1 [...] SHIELD BLUE CROSS BLUE SHIELD Care Teams Supervisor Typesetting Relationship Specialty Start Date End Date Jeramie Kraus MD [address] [place] [address] PCP - General INTERNAL MEDICINE 08/17/18
--- OUTSIDE RECORDS SUMMARY | 2024-09-23 13:21 | XMS_ITS | Clinical Summary ---
Author [facility] Address [address] [place] [address] Care Team Providers Care Foreign Banknote Teller Name Role Phone Jeramie Kraus MD Primary [...] Take 1 Tablet by mouth daily. Active Dimir-2-GHG-EPA -Fish Oil (FISH OIL) 1,000 mg (120 [...] on file Legal Sex Male 12:20 PM COMPUTER FORENSICS INVESTIGATOR Gender Identity Not on file Sexual Orientation Not on file Occupation Industry Job Start Date Job End Date Not on file Not on file Not on file Not on file Last Filed Vital Signs Vital Sign Reading Time Taken Comments Blood Pressure 158/81 05/08/2018 2:48 PM CDT Pulse 65 05/08/2018 2:48 PM CDT Temperature 36.9 C (98.5 F) 04/06/2018 10:08 AM COMPUTER FORENSICS INVESTIGATOR Respiratory Rate 18 04/06/2018 10:08 AM COMPUTER FORENSICS INVESTIGATOR Oxygen Saturation 96% 04/06/2018 10:08 AM COMPUTER FORENSICS INVESTIGATOR Inhaled Oxygen Concentration - - Weight 102.1 [...] 2036 Insurance BCBS BLUE PREFERRED Care Teams Foreign Banknote Teller Relationship Specialty Start Date End Date Jeramie Kraus MD [address] [place] [address] PCP - General Internal Medicine 03/23/18
--- OUTSIDE RECORDS SUMMARY | 2024-09-23 13:22 | XMS_ITS | Patient Health Record ---
Author Organization [facility] Address [address] [place], [place] [id number] Care Team Providers Care Postal Service Sectional Center Manager Name Role Phone KIT HUFFMAN Unavailable [phone] Jeramie Kraus Unavailable Unavailable Reason For Referral No Information Plan Of Treatment No Information Insurance Providers Payer Name Payer Address Payer Phone Subscriber Number Group Number Insured Name Patient Relationship to Insured Coverage Start Date Coverage End Date [facility] ([facility]) ATTN CLAIMS [address] [place] [address] [id number] GURVINDER IRENE Self - patient is the insured
== END 2024-09-23 12:41 | disposition home or self-care (01) ==
LOC: CHSAUDIO 12:43
PROVIDERS: PCP Nurse Practitioner Family; Visit Provider Nurse Practitioner Family
DX: M48.10 Ankylosing hyperostosis [Forestier], site unspecified (principal); M54.2 Cervicalgia; H90.A21 Sensorineural hearing loss, unilateral, right ear, with restricted hearing on the contralateral side; H90.A32 Mixed conductive and sensorineural hearing loss, unilateral, left ear with restricted hearing on the contralateral side
CPT/HCPCS: 92557; 92567

== ENCOUNTER 2024-10-04 13:46 | Outpatient (CLI) | payer MEDICARE, SELFPAY ==
--- NOTE | ~2024-10-04 | CT_ITS ---
EXAMINATION: CT lung screening DATE: 10/04/2024 13:58 INDICATION: Personal history of nicotine dependence TECHNIQUE: Computed tomography (CT) of the chest was performed without intravenous contrast. The dose-length product was 179.13 mGy-cm. COMPARISON: CT dated 07/07/2021 and 07/02/2020 FINDINGS: The upper abdomen is unremarkable. Small hiatal hernia. Heart size normal. No thoracic lymphadenopathy. No significant pleural or pericardial effusion. Mild thoracic spondylosis small 2 mm right apical nodule unchanged. No focal airspace consolidation. No endobronchial lesions. No pneumothorax. Mild thoracic spondylosis. Stable sclerosis of T4 with developing areas of sclerosis along the anterior inferior margin of T5, likely degenerative. IMPRESSION: 1. Lung-RADS category 2: Benign appearance or behavior. Continue annual screening with noncontrast low-dose chest CT in 12 months. Reviewed, dictated and finalized at location O. IMPRESSION: 1. Lung-RADS category 2: Benign appearance or behavior. Continue annual screeni ng with noncontrast low-dose chest CT in 12 months.
--- OUTSIDE RECORDS SUMMARY | 2024-10-04 13:50 | XMS_ITS | Patient Health Record ---
Author Organization [facility] Address [address] [place], [place] [id number] Care Team Providers Care Technologist Development Name Role Phone KIT HUFFMAN Unavailable [phone] Jeramie Kraus Unavailable Unavailable Reason For Referral No Information Plan Of Treatment No Information Insurance Providers Payer Name Payer Address Payer Phone Subscriber Number Group Number Insured Name Patient Relationship to Insured Coverage Start Date Coverage End Date [facility] ([facility]) ATTN CLAIMS [address] [place] [address] [id number] GURVINDER IRENE Self - patient is the insured
== END 2024-10-04 13:47 | disposition home or self-care (01) ==
LOC: CHSIMG 13:48
PROVIDERS: PCP Nurse Practitioner Family; Visit Provider Nurse Practitioner Family
DX: Z12.2 Encounter for screening for malignant neoplasm of respiratory organs (principal); Z87.891 Personal history of nicotine dependence
CPT/HCPCS: 71271

== ENCOUNTER 2024-10-05 18:12 | Emergency (ER) | payer MEDICARE, SELFPAY ==
--- OUTSIDE RECORDS SUMMARY | 2019-08-29 09:00 | XMS_ITS | Continuity of Care Document ---
Author Organization [facility] [place] Address [address] [facility] [address] [place] [address] Phone Care Team Providers Care Interpretative Dancer Name Role Phone Scott Huang PTA Unavailable Unavailable Procedures Procedure Date Therapeutic Activities Neuromuscular Re-Ed Therapeutic Exercise Hot or Cold Pack Manual Therapy Therapeutic Activities Therapeutic Exercise Hot or Cold Pack Neuromuscular Re-Ed Manual Therapy Neuromuscular Re-Ed Therapeutic Activities Therapeutic Exercise Manual Therapy Hot or Cold Pack Therapeutic Activities Therapeutic Exercise Neuromuscular Re-Ed Manual Therapy Manual Therapy Therapeutic Exercise Neuromuscular Re-Ed Therapeutic Activities Hot or Cold Pack Therapeutic Activities Neuromuscular Re-Ed Therapeutic Exercise Hot or Cold Pack Manual Therapy Therapeutic Activities Therapeutic Exercise Neuromuscular Re-Ed Hot or Cold Pack Manual Therapy Neuromuscular Re-Ed Therapeutic Exercise Therapeutic Activities Hot or Cold Pack Manual Therapy Neuromuscular Re-Ed Therapeutic Activities Manual Therapy Therapeutic Exercise Hot or Cold Pack Therapeutic Activities Neuromuscular Re-Ed Therapeutic Exercise Manual Therapy Therapeutic Activities Neuromuscular Re-Ed Therapeutic Exercise Hot or Cold Pack Manual Therapy Neuromuscular Re-Ed Hot or Cold Pack Manual Therapy Therapeutic Exercise Neuromuscular Re-Ed Hot or Cold Pack Therapeutic Exercise Manual Therapy PT Evaluation Moderate Complexity Therapeutic Exercise Manual Therapy Hot or Cold Pack Progress Note THERAPEUTIC EXERCISES MANUAL THERAPY FUNC ACTIVITY HOT/COLD PACK THERAPEUTIC EXERCISES MANUAL THERAPY FUNC ACTIVITY HOT/COLD PACK THERAPEUTIC EXERCISES MANUAL THERAPY FUNC ACTIVITY HOT/COLD PACK THERAPEUTIC EXERCISES MANUAL THERAPY FUNC ACTIVITY HOT/COLD PACK THERAPEUTIC EXERCISES MANUAL THERAPY FUNC ACTIVITY HOT/COLD PACK THERAPEUTIC EXERCISES MANUAL THERAPY FUNC ACTIVITY HOT/COLD PACK PT EVALUATION THERAPEUTIC EXERCISES MANUAL THERAPY Advance Directives Directive Yes / No Effective Date File Name No Information Encounters Encounter Description Practice Location Reason(s) For Visit Diagnoses Date Provider Providers Copied on Encounter [facility] [place], [address] [facility] [address], [place], [place], [id number], [place] tel:[phone] [place] No Information 3-202 0 Sal Chavez. [address] [facility], [address], [place], [address], [place]. tel:[phone] Referring Provider: Shanda Valdovinos, [address], [place], [address]. tel:[phone] [facility] [facility], [place], [place], [id number], tel:[phone] [place] No Information 1-202 0 Ames Yogesh. . Referring Provider: Shanda Valdovinos, [address], [place], [address]. tel:[phone] [facility] [facility], [place], [place], [address], tel:[phone] [place] No Information 6- 0 Ames Yogesh. . Referring Provider: Shanda Valdovinos, [address], [place], [address]. tel:[phone] [facility] [facility], [place], [place], [address], tel:[phone] [place] No Information -202 0 Ames Yogesh. . Referring Provider: Shanda Valdovinos, [address], [place], [address]. tel:[phone] [facility], [place], [place], [address], tel:[phone] [place] No Information 9-202 0 Ames Yogesh. . Referring Provider: Shanda Valdovinos [address], [place], [address]. tel:[phone] [facility], [place], [place], [address], tel:[phone] [place] No Information Van-0 7-202 0 Ames Yogesh. . Referring Provider: Shanda Valdovinos [address], [place], [address]. tel:[phone] [facility] [facility], [place], [place], [address], tel:[phone] [place] No Information 2 6-202 0 Ames Yogesh. . Referring Provider: Shanda Valdovinos [address], [place], [address]. tel:[phone] [facility] [address] [facility] [facility], [place], [place], [id number], tel:[phone] [place] No Information 2 3-202 0 Ames Yogesh. . Referring Provider: Shanda Valdovinos [address], [place], [address]. tel:[phone] [facility] [facility], [place], [place], [address], tel:[phone] [place] No Information 8 0 Sal Chavez. [address] [place] [address], [facility] [address], [place], [facility], . tel:[phone] Referring Provider: Shanda Valdovinos [address], [place], [address]. tel:[phone] [facility] [facility] [address] [place] [address], [id number], tel:[phone] [place] No Information 6-202 0 Ames Yogesh. . Referring Provider: Shanda Valdovinos [address], [place], [address]. tel:[phone] [facility] [facility], [place], [place], [address], tel:[phone] [place] No Information 1-202 0 Sal Chavez. [address] [place] [address] [address], [place], [facility], . tel:[phone] Referring Provider: Shanda Valdovinos, [address], [place], [address]. tel:[phone], [id number], tel:[phone] [place] No Information Rafael-0 9-202 0 Sal Chavez. [address] [place] [address], [address], [place], [place], [facility], [place]. tel:[phone] Referring Provider: Shanda Valdovinos, [address], [place], [address]. tel:[phone] [place] [address], [id number], tel:[phone] [place] No Information Rafael-0 5-202 0 Sal Chavez. [address] [place] [address], [address], [place], [facility], [place]. tel:[phone] Referring Provider: Shanda Valdovinos, [address], [place], [address]. tel:[phone] [facility] [address], [id number], tel:[phone] [place] No Information Rafael-0 2-202 0 Kwaku Zuñiga. . Referring Provider: Shanda Valdovinos, [address], [place], [address]. tel:[phone] [facility] [address], [id number], tel:[phone] [place] No Information Dec-2 9-201 6 Dima Moreno. [address] [place] [address], [address], [place], [place], [facility], . tel:[phone] Referring Provider: Nubia Sheridan, [facility] [place], [address]. tel:[phone] [facility], [address] [place] [address], [place], [place], [id number], [place] tel:[phone] [place] No Information Dec-2 7-201 6 Sal Chavez. [address] [place] [address], [address], [place], [address], [place]. tel:[phone] Referring Provider: Nubia Sheridan, [address] [place] [address], [address]. tel:[phone] [address], [place], [place], [address], [place] tel:[phone] [place] No Information Dec-2 2-201 6 Hilda Cee. . Referring Provider: Nubia Sheridan [address] [place] [address], [address]. tel:[phone] [address] [address], [place], [place], [address], [place] tel:[phone] [place] No Information Dec-1 6-201 6 Sal Chavez. [address] [place] [address], [address], [place], [address], [place]. tel:[phone] Referring Provider: Nubia Sheridan, [address] [place] [address], [address]. tel:[phone] [address] [address], [place], [place], [address], [place] tel:[phone] [place] No Information Dec-1 3-201 6 Dima Moreno. [address] [place] [address], [address], [place], [address], [place]. tel:[phone] Referring Provider: Nubia Sheridan [address] [place] [address], [address]. tel:[phone] [address], [place], [place], [id number], [place] tel:[phone] [place] No Information Dec-0 8-201 6 Sal Chavez. [address] [facility], [address], [place], [address], [place]. tel:[phone] Referring Provider: Nubia Sheridan, [facility] [place], [address]. tel:[phone] [facility], [facility] [facility] [address], [place], [place], [id number], [place] tel:[phone] [place] Pain in left elbowPain in left shoulderMuscle weakness (generalized)My algiaBicipital tendinitis, left shoulder Dec-0 201 6 Dima Moreno. [address] [facility], [address], [place], [address], [place]. tel:[phone] Referring Provider: Nubia Sheridan, [facility] [place], [address]. tel:[phone] Family History Family Member Type Diagnosis Age At Onset No Information Payers Payer name Insurance type Covered republican ID Jerome wilks(s) [facility] [id number] Social History Type Description Quantity Date Captured Comments Sex Male Smoking Status No Information Chief Complaint And Reason For Visit No Information Reason For Referral Reason For Referral No Information History Of Present Illness Encounter Date Complaint History Of Prese nt Illness No Information Functional Status Date Functional Assessmen t No Information Instructions Date Instruction Julio Hutchinsonr chano Giving encouragement to exercise Related to Overweight Assessments Type Assessment Date No Information Patient Care Teams Name Effective Dates (start - stop) Status Members No Information
--- OUTSIDE RECORDS SUMMARY | 2019-08-29 09:00 | XMS_ITS | Continuity of Care Document ---
Author Organization [employer] [place] Address [address] [facility] [address] [place] [address] Phone Care Team Providers Care Mumps Developer Name Role Phone Scott Huang PTA Unavailable Unavailable Procedures Procedure Date Therapeutic Activities Neuromuscular Re-Ed Therapeutic Exercise Hot or Cold Pack Manual Therapy Therapeutic Activities Therapeutic Exercise Hot or Cold Pack Neuromuscular Re-Ed Manual Therapy Therapeutic Exercise Neuromuscular Re-Ed Therapeutic Activities Hot or Cold Pack Manual Therapy Therapeutic Activities Therapeutic Exercise Manual Therapy Neuromuscular Re-Ed Therapeutic Activities Manual Therapy Therapeutic Exercise Neuromuscular Re-Ed Hot or Cold Pack Therapeutic Activities Neuromuscular Re-Ed Therapeutic Exercise Hot or Cold Pack Manual Therapy Therapeutic Exercise Therapeutic Activities Neuromuscular Re-Ed Manual Therapy Hot or Cold Pack Therapeutic Exercise Neuromuscular Re-Ed Therapeutic Activities Hot or Cold Pack Manual Therapy Neuromuscular Re-Ed Therapeutic Exercise Therapeutic Activities Manual Therapy Hot or Cold Pack Therapeutic Activities Manual Therapy Neuromuscular Re-Ed Therapeutic Exercise Neuromuscular Re-Ed Therapeutic Activities Therapeutic Exercise Hot or Cold Pack Manual Therapy Manual Therapy Hot or Cold Pack Neuromuscular Re-Ed Therapeutic Exercise Neuromuscular Re-Ed Manual Therapy Therapeutic Exercise Hot or Cold Pack PT Evaluation Moderate Complexity Therapeutic Exercise Manual [...] Date Provider Providers Copied on Encounter [facility] [place], [address] [facility] [address], [place], [place], [id number], [place] tel:[phone] [place] No Information 3-202 0 Sal Chavez. [address] [facility], [address], [place], [address], [place]. tel:[phone] Referring Provider: Shanda Valdovinos, [address], [place], [address]. tel:[phone] [facility] [facility][[address]], [place], [place], [address], tel:[phone] [place] No Information 1-202 0 Ames Yogesh. . Referring Provider: Shanda Valdovinos, [address], [place], [address]. tel:[phone] [facility] [facility][[address]], [place], [place], [address], tel:[phone] [place] No Information 6- 0 Ames Yogesh. . Referring Provider: Shanda Valdovinos, [address], [place], [address]. tel:[phone] [facility] [facility][[address]], [place], [place], [address], tel:[phone] [place] No Information -202 0 Ames Yogesh. . Referring Provider: Shanda Valdovinos, [address], [place], [address]. tel:[phone] [facility], [place], [place], [address], tel:[phone] [place] No Information 9-202 0 Ames Yogesh. . Referring Provider: Shanda Valdovinos [address], [place], [address]. tel:[phone] [facility], [place], [place], [address], tel:[phone] [place] No Information Van-0 7-202 0 Ames Yogesh. . Referring Provider: Shanda Valdovinos [address], [place], [address]. tel:[phone] [facility] [facility] [place], [place], [address], tel:[phone] [place] No Information 2 6-202 0 Ames Yogesh. . Referring Provider: Shanda Valdovinos [address], [place], [address]. tel:[phone] [facility] [address] [facility]], [place], [place], [address], tel:[phone] [place] No Information 2 3-202 0 Ames Yogesh. . Referring Provider: Shanda Valdovinos [address], [place], [address]. tel:[phone] [facility] [facility]], [place], [place], [address], tel:[phone] [place] No Information 8 0 Sal Chavez. [address] [place] [address], [facility] [address], [place], [facility], . tel:[phone] Referring Provider: Shanda Valdovinos [address], [place], [address]. tel:[phone] [facility] [facility] [address] [place] [address], [id number], tel:[phone] [place] No Information 6-202 0 Ames Yogesh. . Referring Provider: Shanda Valdovinos [address], [place], [address]. tel:[phone] [facility] [facility]], [place], [place], [address], tel:[phone] [place] No Information 1-202 0 Sal Chavez. [address] [place] [address] [address], [place], [facility], . tel:[phone] Referring Provider: Shanda Valdovinos, [address], [place], [address]. tel:[phone], [id number], tel:[phone] [place] No Information Rafael-0 9-202 0 Sal Chavez. [address] [place] [address], [address], [place], [place], [facility], [place]. tel:[phone] Referring Provider: Shanda Valdovinos, [address], [place], [address]. tel:[phone] [place] [address], [id number], tel:[phone] [place] No Information Rafael-0 5-202 0 aSl Chavez. [address] [place] [address], [address], [place], [facility], [place]. tel:[phone] Referring Provider: Shanda Valdovinos, [address], [place], [address]. tel:[phone] [facility] [address], [id number], tel:[phone] [place] No Information Rafael-0 2-202 0 Kwaku Zuñiga. . Referring Provider: Shanda Valdovinos, [address], [place], [address]. tel:[phone] [facility] [address], [id number], tel:[phone] [place] No Information Dec-2 9-201 6 Dima Moreno. [address] [place] [address], [address], [place], [place], [facility], . tel:[phone] Referring Provider: Nubia Sheridan, [facility] [place], [address]. tel:[phone] [facility], [address] [place] [address] [address], [place], [place], [address], [place] tel:[phone] [place] No Information Dec-2 7-201 6 Sal Chavez. [address] [place] [address], [address], [place], [address], [place]. tel:[phone] Referring Provider: Nubia Sheridan, [address] [place] [address], [address]. tel:[phone] [address], [place], [place], [address], [place] tel:[phone] [place] No Information Dec-2 2-201 6 Hilda Cee. . Referring Provider: Nubia Sheridan [address] [place] [address], [address]. tel:[phone] [address] [address], [place], [place], [address], [place] tel:[phone] [place] No Information Dec-1 6-201 6 Sal Chavez. [address] [place] [address], [address], [place], [address], [place]. tel:[phone] Referring Provider: Nubia Sheridan, [address] [place] [address], [address]. tel:[phone] [address] [address], [place], [place], [address], [place] tel:[phone] [place] No Information Dec-1 3-201 6 Dima Moreno. [address] [place] [address], [address], [place], [address], [place]. tel:[phone] Referring Provider: Nubia Sheridan [address] [place] [address], [address]. tel:[phone] [address], [place], [place], [id number], [place] tel:[phone] [place] No Information Dec-0 8-201 6 Sal Chavez. [address] [facility], [address], [place], [address], [place]. tel:[phone] Referring Provider: Nubia Sheridan, [facility] [place], [address]. tel:[phone] [facility] [place], [facility] [facility] [address], [place], [place], [address], [place] tel:[phone] [place] Pain in left elbowPain in left shoulderMuscle weakness (generalized)My algiaBicipital tendinitis, left shoulder Dec-0 201 6 Dima Moreno. [address] [facility], [address], [place], [address], [place]. tel:[phone] Referring Provider: Nubia Sheridan, [facility] [place], [address]. tel:[phone] Family History Family Member Type Diagnosis Age At Onset No Information Payers Payer name Insurance type Covered green party ID Jerome wilks(s) [facility] [id number] Social History Type Description Quantity Date Captured [...]
--- NOTE | ~2024-10-05 | XR_ITS ---
EXAMINATION: XR chest 1V portable, 10/05/2024 18:40 CDT HISTORY: SOB, History of COPD COMPARISON: No comparisons available. Technique: Single view. Findings: The lungs are clear, no effusion. No pneumothorax. Heart is normal size. Mediastinal and hilar contours are within normal limits. Bony thorax no acute abnormality. Impression: No acute cardiopulmonary abnormality. Reviewed, dictated and finalized at location A. Impression: No acute cardiopulmonary abnormality.
[2024-10-05 18:13] VITALS: BP 156/79; PULSE 95; RESP 16; TEMP 36.6; O2SAT 98
--- OUTSIDE RECORDS SUMMARY | 2024-10-05 18:14 | XMS_ITS | Patient Health Record ---
Author Organization [facility] Address [address] [place], [place] [address] Care Team Providers Care Winter Sports Manager Name Role Phone KIT HUFFMAN Unavailable [phone] Jeramie Kraus Unavailable Unavailable Reason For Referral No Information Plan Of Treatment No Information Insurance Providers Payer Name Payer Address Payer Phone Subscriber Number Group Number Insured Name Patient Relationship to Insured Coverage Start Date Coverage End Date [facility] ([facility]) ATTN CLAIMS [address] [place] [address] [id number] GURVINDER IRENE Self - patient is the insured
--- OUTSIDE RECORDS SUMMARY | 2024-10-05 18:14 | XMS_ITS | Clinical Summary ---
Author Organization [facility] Address [address] [place] [address] Care Team Providers Care Commercial Lines Account Assistant Name Role Phone Jeramie Kraus MD Primary [...] Take 1 Tablet by mouth daily. 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 Gender Identity Not on file Sexual Orientation Not on file Occupation Industry Job Start Date Job End Date Not on file Not on file Not on file Not on file Last Filed Vital Signs Vital Sign Reading Time Taken Comments Blood Pressure 158/81 05/08/2018 2:48 PM CDT Pulse 65 05/08/2018 2:48 PM CDT Temperature 36.9 C (98.5 F) 04/06/2018 10:08 AM BRAKE LINING CURER Respiratory Rate 18 04/06/2018 10:08 AM BRAKE LINING CURER Oxygen Saturation 96% 04/06/2018 10:08 AM BRAKE LINING CURER Inhaled Oxygen Concentration - - Weight 102.1 [...] 2036 Insurance BCBS BLUE PREFERRED Care Teams Commercial Lines Account Assistant Relationship Specialty Start Date End Date Jeramie Kraus MD [address] [place] [address] PCP - General Internal Medicine 03/23/18
--- NOTE | 2024-10-05 18:20 | ECG_ITS ---
Test Date: 2024-10-05 18:27:33 Measurements Intervals [place] Rate: 81 P: 47 CT: 169 QRS: 3 QRSD: 102 T: 24 QT: 362 QTc: 422 Interpretive Statements SINUS RHYTHM NONSPECIFIC ST-T WAVE ABNORMALITY- INF/LAT LEADS BASELINE ARTIFACT- I, II, III, AVR, AVL, AVF BORDERLINE ECG No previous ECG available for comparison Electronically Signed On 10-05-2024 18:40:53 CDT by Alex Carballo D.O.
--- NOTE | 2024-10-05 18:38 | PC.NURSE ---
Covid culture given to lab person
[2024-10-05 18:53] LABS: Hematocrit 38.2 % (40.0-54.0); Hemoglobin 13.1 g/dL (14.0-18.0); Immature Granulocyte Percent A 0.3 % (0.0-0.0); Lymphocytes Absolute Auto 2.26 K/mm3 (1.10-4.50); Mean Corpuscular HGB Conc 34.3 g/dL (32-36); Mean Corpuscular Hemoglobin 33.1 pg (27.0-31.0); Mean Corpuscular Volume 96.5 fL (78.0-102.0); Nucleated Red Blood Cells Absolute Auto 0.00 K/mm3 (0.00-0.00); Nucleated Red Blood Cells Perc 0.0 % (0-0.0); Platelet Count Result 276 K/mm3 (150-420); Red Blood Count 3.96 M/mm3 (4.70-6.10); White Blood Count 8.6 K/mm3 (4.8-10.8)
[2024-10-05 19:00] LABS: Alanine Aminotransferase 35 U/L (6-50); Albumin Level 4.5 g/dL (3.5-5.1); Alkaline Phosphatase 51 U/L (38-126); Anion Gap 9 mmol/L (4-12); Aspartate Amino Transferase 46 U/L (17-59); Bilirubin,Total 0.5 mg/dL (0.2-1.3); Blood Urea Nitrogen 17 mg/dL (9-20); Calcium 9.3 mg/dL (8.4-10.2); Carbon Dioxide 29 mmol/L (22-30); Chloride 102 mmol/L (98-107); Estimated CRCL calculation 74 ml/min; Estimated Glomerular Filt Rate > 60; Glucose 141 mg/dL (65-110); Osmolality Calculated 293 mOsm/kg (285-295); Potassium 3.6 mmol/L (3.4-5.0); Sodium 140 mmol/L (137-145); Total Protein 7.4 g/dL (6.3-8.2)
--- OUTSIDE RECORDS SUMMARY | 2024-10-05 19:17 | XMS_ITS | Clinical Summary ---
Author Organization [facility] Address [address] [place] [address] Care Team Providers Care Complaint Evaluation Officer Name Role Phone Jeramie Kraus MD Primary [...] Take 1 Tablet by mouth daily. 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 Gender Identity Not on file Sexual Orientation Not on file Occupation Industry Job Start Date Job End Date Not on file Not on file Not on file Not on file Last Filed Vital Signs Vital Sign Reading Time Taken Comments Blood Pressure 158/81 05/08/2018 2:48 PM CDT Pulse 65 05/08/2018 2:48 PM CDT Temperature 36.9 C (98.5 F) 04/06/2018 10:08 AM SIDE SEAM MACHINE OPERATOR Respiratory Rate 18 04/06/2018 10:08 AM SIDE SEAM MACHINE OPERATOR Oxygen Saturation 96% 04/06/2018 10:08 AM SIDE SEAM MACHINE OPERATOR Inhaled Oxygen Concentration - - Weight 102.1 [...] 2036 Insurance BCBS BLUE PREFERRED Care Teams Complaint Evaluation Officer Relationship Specialty Start Date End Date Jeramie Kraus MD [address] [place] [address] PCP - General Internal Medicine 03/23/18
[2024-10-05 19:27] LABS: Influenza A QL RT-PCR Negative (Negative); Influenza B QL RT-PCR Negative (Negative); RSV RNA, RT-PCR Negative (Negative); SARS-CoV-2 RNA PCR Negative (Negative)
--- NOTE | 2024-10-05 19:34 | ED_ITS ---
HPI - Dizziness General Chief Complaint: Dizziness Stated Complaint: per patient dizzy, doesn't feel right Time Seen by Provider: 10/05/24 18:14 Source: patient Mode of arrival: ambulatory Limitations: no limitations History of Present Illness HPI Narrative: this is a 64-year-old male that recently had some medication tapered including his Neurontin, and had recently had medications for his blood pressure adjusted and had 1 low reading at home that he was concerned about. Currently blood pressure 156/79. The patient had no chest pain no shortness of breath no abdominal pain had some lightheadedness which has since resolved prior to arrival. There was no nausea or vomiting no shortness of breath no fever chills. MD elicited complaint: lightheadedness Onset (ago): hour(s) Timing: intermittent Severity: mild Description: off-balance Related Data Allergies Allergy/AdvReac Type Severity Reaction Status Date / Time codeine Allergy Mild Difficulty Verified 10/05/24 18:24 Breathing penicillin G Allergy Mild Rash Verified 10/05/24 18:24 Review of Systems 2 Review of Systems: All systems reviewed & are unremarkable except as noted in HPI and below PMFSH Past Medical History Medical History DDD (degenerative disc disease) DISH (diffuse idiopathic skeletal hyperostosis) Diverticulitis Anemia Hiatal hernia Asthma LEIGHA (obstructive sleep apnea) COPD (chronic obstructive pulmonary disease) Hypertension Hyperlipidemia Social History Social History Years smoked: 40 Smoking status: Former smoker Tobacco type: cigarettes Alcohol intake: never Substance use: current Substance use type: marijuana Other substance usage details: daily marijuana use Living arrangements: with family Occupation/Education: other Additional occupation/education comments: 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 Spiritual care concerns: No Exam 2 Const: General: healthy appearing Nutritional Appearance: well nourished Orientation/consciousness: patient oriented x3 Limitations: no limitations Eyes: Conjunctivae: conjunctivae normal Pupils: Equal, round and reactive pupils present EOM: EOMs intact bilaterally Neck: Neck: normal visual inspection Chest: Chest palpation & inspection: normal inspection of the chest Resp: Effort & Inspection: normal respiratory effort Auscultation: clear to auscultation bilaterally Cardio: Rate: regular rate Rhythm: regular rhythm GI: GI Palp: Yes Soft to palpation Auscultation: normal bowel sounds : General: Yes bladder normal to palpation Urinary Catheter: Urinary Catheter: patent and draining Back/Spine/Pelvis: Back: no CVA tenderness Skin: General skin exam: normal color Rashes: no rashes Neuro: General: patient oriented x3, moves all extremities, no meningeal signs and no focal motor deficits Course Course Emergency Course: Patient had EKG which showed normal sinus rhythm with normal rate, chest x-ray with no acute cardiopulmonary abnormalities blood work was unremarkable with a normal white count electrolytes within normal range. Patient was given reassurance vitals are stable advised patient continue his current medical regimen follow up with his primary. Vital Signs Vital signs: Vital Signs Temperature 36.6 C 10/05/24 18:13 Pulse Rate 95 10/05/24 18:13 Respiratory Rate 16 10/05/24 18:13 Blood Pressure 156/79 H 10/05/24 18:13 Pulse Oximetry 98 10/05/24 18:13 Oxygen Delivery Room Air 10/05/24 18:13 Temperature 36.6 C 10/05/24 18:13 Pulse Rate 95 10/05/24 18:13 Respiratory Rate 16 10/05/24 18:13 Blood Pressure 156/79 H 10/05/24 18:13 Pulse Oximetry 98 10/05/24 18:13 Oxygen Delivery Room Air 10/05/24 18:13 MDM - Dizziness Lab Data 10/05/24 18:39 10/05/24 18:39 Labs: Lab Results 10/05/24 Range/Units 18:39 WBC 8.6 (4.8-10.8) K/mm3 RBC 3.96 L (4.70-6.10) M/mm3 Hgb 13.1 L (14.0-18.0) g/dL Hct 38.2 L (40.0-54.0) % MCV 96.5 (78.0-102.0) fL MCH 33.1 H (27.0-31.0) pg MCHC 34.3 (32-36) g/dL RDW 12.2 (11.6-14.4) % Plt Count 276 (150-420) K/mm3 MPV 9.7 (8.7-11.0) fl Immature Gran % (Auto) 0.3 H (0.0-0.0) % Neut % (Auto) 59.5 (50.0-70.0) % Lymph % (Auto) 26.2 (18.0-42.0) % [place] % (Auto) 11.7 H (2.0-11.0) % Eos % (Auto) 1.7 (1.0-6.0) % Baso % (Auto) 0.6 (0.0-1.0) % Lymph # (Auto) 2.26 (1.10-4.50) K/mm3 [place] # (Auto) 1.01 H (0.10-0.90) K/mm3 Eos # (Auto) 0.15 (0.02-0.50) K/mm3 Baso # (Auto) 0.05 (0.00-0.10) K/mm3 Abs Immat Gran (auto) 0.03 H (0.00-0.00) K/mm3 Absolute Neuts (auto) 5.14 (1.70-7.20) K/mm3 Absolute Nucleated RBC 0.00 (0.00-0.00) K/mm3 Nucleated RBC % 0.0 (0-0.0) % Sodium 140 (137-145) mmol/L Potassium 3.6 (3.4-5.0) mmol/L Chloride 102 (98-107) mmol/L Carbon Dioxide 29 (22-30) mmol/L Anion Gap 9 (4-12) mmol/L BUN 17 (9-20) mg/dL Creatinine 1.06 (0.7-1.3) mg/dL Estim Creat Clear Calc 74 ml/min Estimated GFR > 60 (59 - ) Glucose 141 H (65-110) mg/dL Calculated Osmolality 293 (285-295) mOsm/kg Calcium 9.3 (8.4-10.2) mg/dL Total Bilirubin 0.5 (0.2-1.3) mg/dL AST 46 (17-59) U/L ALT 35 (6-50) U/L Alkaline Phosphatase 51 (38-126) U/L Total Protein 7.4 (6.3-8.2) g/dL Albumin 4.5 (3.5-5.1) g/dL Influenza A (RT-PCR) Negative (Negative) Influenza B (RT-PCR) Negative (Negative) RSV (RT-PCR) Negative (Negative) SARS-CoV-2 RNA (RT-PCR) Negative (Negative) Critical Care Time Critical Care Time Critical Care Time: No Discharge Plan Discharge Clinical Impression: Light-headedness Patient Disposition: Home Condition: Stable Instructions: Antibiotic Form, Lightheadedness (ED) Additional Instructions: advised to continue his current medical regimen and follow with his primary on Monday for further evaluation and treatment. Patient Language: German Prescriptions: No Action pantoprazole 40 mg tablet,delayed release (DR/EC) 40 mg PO QAM 360 Days Qty: 360 0RF gabapentin 100 mg capsule 100 mg PO TID Qty: 90 0RF fluticasone propionate 50 mcg/actuation spray,suspension See Rx Instructions .ROUTE .COMPLEX Qty: 16 3RF Dose Instruction: USE ONE SPRAY IN EACH NOSTRIL DAILY Rx Instructions: USE ONE SPRAY IN EACH NOSTRIL DAILY levothyroxine 25 mcg tablet See Rx Instructions .ROUTE .COMPLEX Qty: 90 0RF Dose Instruction: TAKE ONE TABLET BY MOUTH DAILY Rx Instructions: TAKE ONE TABLET BY MOUTH DAILY cyclobenzaprine 10 mg tablet See Rx Instructions .ROUTE .COMPLEX Qty: 90 0RF Dose Instruction: TAKE ONE TABLET BY MOUTH THREE TIMES A DAY Rx Instructions: TAKE ONE TABLET BY MOUTH THREE TIMES A DAY terazosin 10 mg capsule See Rx Instructions .ROUTE .COMPLEX Qty: 90 2RF Dose Instruction: TAKE ONE CAPSULE BY MOUTH BEDTIME Rx Instructions: TAKE ONE CAPSULE BY MOUTH BEDTIME magnesium 250 mg tablet 500 mg PO DAILY Qty: 30 0RF mecobalamin (vitamin B12) 500 mcg tablet,chewable 500 mcg PO DAILY Qty: 30 0RF One-A-Day Men's 50 Plus 400-370 mcg tablet 1 tablet PO DAILY Qty: 30 0RF cholecalciferol (vitamin D3) 125 mcg (5,000 unit) capsule 125 mcg PO DAILY Qty: 30 0RF ferrous sulfate 134 mg (27 mg iron) tablet 134 mg PO DAILY Qty: 30 0RF omega 8-xxf-hru-fish oil [Fish Oil] 1,200 (144-216) mg capsule 1 cap PO DAILY Qty: 30 0RF rosuvastatin 10 mg tablet See Rx Instructions .ROUTE .COMPLEX Qty: 90 1RF Dose Instruction: TAKE ONE TABLET BY MOUTH DAILY Rx Instructions: TAKE ONE TABLET BY MOUTH DAILY albuterol sulfate 90 mcg/actuation HFA aerosol inhaler See Rx Instructions .ROUTE .COMPLEX Qty: 8.5 1RF Dose Instruction: INHALE TWO PUFFS BY MOUTH EVERY FOUR HOURS NEEDED FOR SHORTNESS OF BREATH OR WHEEZING Rx Instructions: INHALE TWO PUFFS BY MOUTH EVERY FOUR HOURS NEEDED FOR SHORTNESS OF BREATH OR WHEEZING losartan-hydrochlorothiazide 100-12.5 mg tablet 1 tablet PO DAILY Qty: 30 2RF trazodone 50 mg tablet See Rx Instructions .ROUTE .COMPLEX Qty: 20 0RF Dose Instruction: TAKE ONE TABLET BY MOUTH BEDTIME NEEDED Rx Instructions: TAKE ONE TABLET BY MOUTH BEDTIME NEEDED Follow-up/Referrals: Dannie Nicolas APRN [Primary Care Provider, Family Practice] Time of Disposition: 19:37
[2024-10-05 19:45] VITALS: BP 125/66; PULSE 72; RESP 20; TEMP 36.8; O2SAT 97
== END 2024-10-05 19:49 | disposition home or self-care (01) ==
PROVIDERS: Emergency Provider Emergency Medicine; PCP Nurse Practitioner Family
DX: R42 Dizziness and giddiness (principal); I10 Essential (primary) hypertension; J44.9 Chronic obstructive pulmonary disease, unspecified; E78.5 Hyperlipidemia, unspecified; Z87.891 Personal history of nicotine dependence; Z79.899 Other long term (current) drug therapy; Z20.822 Contact with and (suspected) exposure to COVID-19
CPT/HCPCS: 36415; 71045; 80053; 85025; 87637; 93005; 99283

== ENCOUNTER 2024-10-10 13:21 | Outpatient (CLI) | payer MEDICARE, SELFPAY ==
--- NOTE | ~2024-10-10 | XR_ITS ---
EXAMINATION: XR cervical spine min 6V DATE: 10/10/2024 13:49 INDICATION: Cervicalgia TECHNIQUE: 6 images of the cervical spine were obtained. COMPARISON: None FINDINGS: Predental space is within normal limits. No prevertebral soft tissue swelling. Large bridging anterior spurs at the C5, C6 and C7 levels. No compression fracture in the cervical spine. Moderate degenerative change scattered throughout the cervical spine. The C7-T1 junction was not visualized in the lat eral projections due to overlapping structures. IMPRESSION: 1. No compression fracture in the cervical spine. 2. Large bridging anterior osteophytes at the C5, C6 and C7 levels. 3. Moderate degenerative change scattered throughout the cervical facet joints. If symptoms persist or worsen, consider an MRI of the cervical spine for further assessment. Reviewed, dictated and finalized at location Q. IMPRESSION: 1. No compression fracture in the cervical spine. 2. Large bridging anterior osteophytes at the C5, C6 and C7 levels. 3. Moderate degenerative change scattered throughout the cervical facet joints. If symptoms persist or worsen, consider an MRI of the cervical spine for furthe r assessment.
--- OUTSIDE RECORDS SUMMARY | 2024-10-10 13:27 | XMS_ITS | Patient Health Record ---
Author Organization [facility] Address [address] [place], [place] [id number] Care Team Providers Care Portuguese Tutor Name Role Phone KIT HUFFMAN Unavailable [phone] Jeramie Kraus Unavailable Unavailable Reason For Referral No Information Plan Of Treatment No Information Insurance Providers Payer Name Payer Address Payer Phone Subscriber Number Group Number Insured Name Patient Relationship to Insured Coverage Start Date Coverage End Date [facility] ([facility]) ATTN CLAIMS [address] [place] [address] [id number] GURVINDER IRENE Self - patient is the insured
--- OUTSIDE RECORDS SUMMARY | 2024-10-10 13:27 | XMS_ITS | Clinical Summary ---
Author Organization [facility] Address [address] [place] [address] Care Team Providers Care Embedded Firmware Developer Name Role Phone Jeramie Kraus MD Primary [...] Take 1 Tablet by mouth daily. 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 Gender Identity Not on file Sexual Orientation Not on file Occupation Industry Job Start Date Job End Date Not on file Not on file Not on file Not on file Last Filed Vital Signs Vital Sign Reading Time Taken Comments Blood Pressure 158/81 05/08/2018 2:48 PM CDT Pulse 65 05/08/2018 2:48 PM CDT Temperature 36.9 C (98.5 F) 04/06/2018 10:08 AM DATABASE MANAGEMENT SPECIALIST Respiratory Rate 18 04/06/2018 10:08 AM DATABASE MANAGEMENT SPECIALIST Oxygen Saturation 96% 04/06/2018 10:08 AM DATABASE MANAGEMENT SPECIALIST Inhaled Oxygen Concentration - - Weight 102.1 [...] 2036 Insurance BCBS BLUE PREFERRED Care Teams Embedded Firmware Developer Relationship Specialty Start Date End Date Jeramie Kraus MD [address] [place] [address] PCP - General Internal Medicine 03/23/18
== END 2024-10-10 13:22 | disposition home or self-care (01) ==
LOC: CHSIMG 13:23
PROVIDERS: PCP Nurse Practitioner Family; Visit Provider Nurse Practitioner Adult Health
DX: M54.2 Cervicalgia (principal); M48.02 Spinal stenosis, cervical region; M47.812 Spondylosis without myelopathy or radiculopathy, cervical region; M25.78 Osteophyte, vertebrae
CPT/HCPCS: 72052

== ENCOUNTER 2024-10-24 14:42 | Outpatient (CLI) | payer MEDICARE, SELFPAY ==
--- NOTE | ~2024-10-24 | MR_ITS ---
EXAMINATION: MR cervical spine wo con DATE: 10/24/2024 15:18 INDICATION: Spinal stenosis, cervical region. TECHNIQUE: Magnetic resonance imaging (MRI) of the cervical spine was performed without intravenous contrast. Sequences included sagittal T2-weighted FSE, sagittal T2-weighted FS FSE, sagittal T1-weighted FSE, axial MERGE, and axial T2-weighted FSE. COMPARISON: Cervical spine radiographs 10/10/2024 FINDINGS: There is 3 degrees levocurvature of cervical spine. Vertebral body heights are normal. There is mildly decreased disc height at C4-C5. The spinal cord signal intensity is normal. The following disc levels are specifically discussed: C2-C3: The disc does not extend beyond the endplate margin. There is no uncovertebral joint osteoarthritis. There is mild right and severe left facet joint osteoarthritis. There is mild left neural foraminal stenosis. There is no central canal stenosis. C3-C4: There is a central protrusion. There is mild bilateral uncovertebral joint osteoarthritis. There is severe right and moderate left facet joint osteoarthritis. There is moderate right and mild left neural foraminal stenosis. There is no central canal stenosis. C4-C5: The disc is bulging. There is severe right and moderate left uncovertebral joint osteoarthritis. There is severe right and mild left facet joint osteoarthritis. There is mild bilateral neural foraminal stenosis. There is mild central canal stenosis. C5-C6: There is a central extrusion. There is moderate right and mild left uncovertebral joint osteoarthritis. There is moderate bilateral facet joint osteoarthritis. There is mild right neural foraminal stenosis. There is mild central canal stenosis. C6-C7: There is a central protrusion. There is mild bilateral uncovertebral joint osteoarthritis. There is severe right and mild left facet joint osteoarthritis. There is mild right neural foraminal stenosis. There is no central canal stenosis. C7-T1: The disc does not extend beyond the endplate margin. There is no uncovertebral joint osteoarthritis. There is severe bilateral facet joint osteoarthritis. There is mild bilateral neural foraminal stenosis. There is no central canal stenosis. IMPRESSION: 1. Moderate cervical spondylosis. Reviewed, dictated and finalized at location E.
--- OUTSIDE RECORDS SUMMARY | 2024-10-24 14:44 | XMS_ITS | Clinical Summary ---
Author Organization [facility] Address [address] [place] [address] Care Team Providers Care Gas Torch Solderer Name Role Phone Jeramie Kraus MD Primary [...] Take 1 Tablet by mouth daily. 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 Gender Identity Not on file Sexual Orientation Not on file Occupation Industry Job Start Date Job End Date Not on file Not on file Not on file Not on file Last Filed Vital Signs Vital Sign Reading Time Taken Comments Blood Pressure 158/81 05/08/2018 2:48 PM CDT Pulse 65 05/08/2018 2:48 PM CDT Temperature 36.9 C (98.5 F) 04/06/2018 10:08 AM MANAGER INVENTORY CONTROL Respiratory Rate 18 04/06/2018 10:08 AM MANAGER INVENTORY CONTROL Oxygen Saturation 96% 04/06/2018 10:08 AM MANAGER INVENTORY CONTROL Inhaled Oxygen Concentration - - Weight 102.1 [...] 2036 Insurance BCBS BLUE PREFERRED Care Teams Gas Torch Solderer Relationship Specialty Start Date End Date Jeramie Kraus MD [address] [place] [address] PCP - General Internal Medicine 03/23/18
--- OUTSIDE RECORDS SUMMARY | 2024-10-24 14:44 | XMS_ITS | Clinical Summary ---
Author Organization [facility] Address [address] [place] [address] Care Team Providers Care University Demonstrator Name Role Phone Jeramie Kraus MD Primary Care Provider [phone] Allergies Active Allergy Reactions Criticality Noted Date Comments Codeine Anaphylaxis High 07/17/2015 Penicillins Rash Low 07/17/2015 Medications loratadine-pseu doephedrine ER 10-240 MG 24 hr tablet Active Albuterol Sulfate (PROAIR RESPICLICK) 108 (90 Base) MCG/ACT AEROSOL POWDER, BREATH ACTIVATED Active aspirin EC 81 MG tablet Take 81 mg by mouth daily. Active B Otximdd-S-Morvb Acid (RENAL) 1 MG Cap Take 1 [...] COVID-19 Vaccine ( - 2023-2 5 season) 2024 RSV Immunization or 60+ Years (1 - [...] SHIELD BLUE CROSS BLUE SHIELD Care Teams University Demonstrator Relationship Specialty Start Date End Date Jeramie Kraus MD [address] [place] [address] PCP - General INTERNAL MEDICINE 08/17/18
== END 2024-10-24 14:43 | disposition home or self-care (01) ==
LOC: CHSIMG 14:42
PROVIDERS: PCP Nurse Practitioner Family; Visit Provider Nurse Practitioner Adult Health
DX: M48.02 Spinal stenosis, cervical region (principal); M47.812 Spondylosis without myelopathy or radiculopathy, cervical region
CPT/HCPCS: 72141

== ENCOUNTER 2024-10-29 08:45 | Outpatient (CLI) | payer MEDICARE, SELFPAY ==
--- OUTSIDE RECORDS SUMMARY | 2024-10-29 09:10 | XMS_ITS | Patient Health Record ---
Author Organization [facility] Address [address] [place], [place] [id number] Care Team Providers Care Psychiatric Orderly Name Role Phone KIT HUFFMAN Unavailable [phone] Jeramie Kraus Unavailable Unavailable Reason For Referral No Information Plan Of Treatment No Information Insurance Providers Payer Name Payer Address Payer Phone Subscriber Number Group Number Insured Name Patient Relationship to Insured Coverage Start Date Coverage End Date [facility] ([facility]) ATTN CLAIMS [address] [place] [address] [id number] GURVINDER IRENE Self - patient is the insured
--- OUTSIDE RECORDS SUMMARY | 2024-10-29 09:10 | XMS_ITS | Clinical Summary ---
Author Organization [facility] ([facility] Address [address] [place] [address] Care Team Providers Care Suede Brusher Name Role Phone Jeramie Kraus MD Primary [...] Take 1 Tablet by mouth daily. 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 Gender Identity Not on file Sexual Orientation Not on file Occupation Industry Job Start Date Job End Date Not on file Not on file Not on file Not on file Last Filed Vital Signs Vital Sign Reading Time Taken Comments Blood Pressure 158/81 05/08/2018 2:48 PM CDT Pulse 65 05/08/2018 2:48 PM CDT Temperature 36.9 C (98.5 F) 04/06/2018 10:08 AM CENTRIFUGAL SEPARATOR Respiratory Rate 18 04/06/2018 10:08 AM CENTRIFUGAL SEPARATOR Oxygen Saturation 96% 04/06/2018 10:08 AM CENTRIFUGAL SEPARATOR Inhaled Oxygen Concentration - - Weight 102.1 [...] 2036 Insurance BCBS BLUE PREFERRED Care Teams Suede Brusher Relationship Specialty Start Date End Date Jeramie Kraus MD [address] [place] [address] PCP - General Internal Medicine 03/23/18
--- NOTE | 2024-10-31 12:58 | WPDHOLTEREM ---
Holter/Event Monitor Holter/Event Monitor Date of procedure: 10/29/24 Holter/Event Procedure: 48 Hr Holter Monitor Indications: Palpitations Conclusion: 1. 48 hour holter monitor on 10/29/24. 2. Predominant rhythm is sinus rhythm. HR range 47-120 bpm; average HR 71 bpm. HR at 47 bpm was at 7:23 am. 3. There are 635 premature supraventricular complexes, 30 supraventricular couplets, 35 supraventricular bigeminy. There are 2 episodes of supraventricular tachycardia with fastest at 145 bpm and longest lasting 7 beats. 4. There are 4,473 premature ventricular complexes, 467 ventricular couplets, 12 ventricular triplets, 9 ventricular bigeminy and 19 ventricular trigeminy. There are 2 episodes of ventricular tachycardia with fastest at 171 bpm and longest lasting 9 beats. 5. No significant pauses greater than 2 seconds. 6. Patient reports 4 episodes of symptoms of shortness of breath, dizziness, palpitations, increase heart rate which demonstrate sinus rhythm, HR range 68-94 bpm with 3 episodes with PVC's.
== END 2024-10-29 08:46 | disposition home or self-care (01) ==
PROVIDERS: PCP Nurse Practitioner Family; Visit Provider Nurse Practitioner Family
DX: R42 Dizziness and giddiness (principal); R00.2 Palpitations; R94.31 Abnormal electrocardiogram [ECG] [EKG]
CPT/HCPCS: 93225; 93226

== ENCOUNTER 2024-11-06 13:45 | Outpatient (RCR) | payer MEDICARE, SELFPAY ==
--- NOTE | 2024-10-14 14:56 | OPREHPOC ---
Outpatient Therapy Plan of Care This is a Multidisciplinary Plan of Care that may contain components documented by all disciplines (PT, OT, and ST.) PT Problem 1 PT Problem #1 Knowledge Deficit PT Goal 1 Goal / Goal Update Independent and compliant with HEP. Target Visit 2 PT Problem 2 PT Problem #2 Impaired Strength PT Goal 1 Goal / Goal Update Pt to improve cervical mm strength to 5/5 without pain. Target Visit 12 PT Problem 3 PT Problem #3 Impaired Range of Motion PT Goal 1 Goal / Goal Update Pt to improve active cervical extension ROM to 35 deg without pain. Pt to improve active R cervical rotatino ROM to 55 deg without pain. Target Visit 12 PT Problem 4 PT Problem #4 Impaired Functional Mobility PT Goal 1 Goal / Goal Update Pt to report 10% or less perceived disability on NDI. Pt to report being able to turn his head further for improved ability to look for cars when driving . Target Visit 12
--- NOTE | 2024-10-14 14:56 | PTOPEVAL1 ---
Assessment and note entered by Mally Feliz, PT Evaluation Information Assessment Status Evaluation ICD-10 Condition Codes (PT) Cervicalgia M54.2 Other ICD-10 Condition Codes ( M48.02, M48.812 PT) Subjective Information Pt reports his neck pain has been going on for about 7 years. He reports that his doctors originally thought he had metastatic cancer but after a biopsy it was ruled out, and he was found to have DISH (Diffuse Idiopathic Skeletal Hyperostosis). He currently rates his pain at 4/10 and he reports my pain gets so bad it makes me want to step in front of a bus. States his pain usually begins at the level of T4 and works its way up to the back of his skull. Denies NTB. He uses heating pads regularly and used to use Biofreeze but hasn't been using it recently. He has difficulty driving due to not being able to turn his head side to side. He doesn't report any specific tasks that he struggles with at home this date. He has consulted with pain management who ordered x-rays (which he has gotten) and an MRI which is scheduled for the . 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 Reported Pain Level Pain Score 4: Self Report Assessment PT Clinical Summary Mr. Waters is a 64 yo male presenting with cervical and thoracic region neck pain due to DISH syndrome. He demonstrates mild deficits in cervical mm strength and significant deficits in active cervical extension and R rotation ROM. His pain and limitations are causing him difficulty with turning his head to look for cars when driving. He will benefit from skilled PT intervention to address mobility, flexibility, and strength deficits to improve pt's safety when driving and allow him to perform all daily activities without excessive pain. Plan of Care Interventions Electrical Stimulation,Gait Training,Hot Pack/Cold Pack,Manual Therapy,Neuro Re-education,Patient/ Caregiver Education,Therapeutic Activities, Therapeutic Exercise,Self-Care/Home Management PT Services Indicated Yes Treatment Frequency and 3x/week for 12 visits Duration These treatments will address the objective and functional deficits as defined above. The patient will be advanced safely and appropriately in order for the patient to progress towards his/her prior level of function. Additional exercises will be introduced and as well as a comprehensive home exercise program upon discharge, if needed, ?to ensure carryover of functional gains achieved in the clinic. This treatment plan has been reviewed and agreement upon by the patient.
--- NOTE | 2024-11-13 11:59 | OPREHPOC ---
Outpatient Therapy Plan of Care This is a Multidisciplinary Plan of Care that may contain components documented by all disciplines (PT, OT, and ST.) PT Problem 1 PT Problem #1 Knowledge Deficit PT Goal 1 Goal / Goal Update Independent and compliant with HEP. Target Visit 2 Progress Met PT Problem 2 PT Problem #2 Impaired Strength PT Goal 1 Goal / Goal Update Pt to improve cervical mm strength to 5/5 without pain. Target Visit 12 Progress Met PT Problem 3 PT Problem #3 Impaired Range of Motion PT Goal 1 Goal / Goal Update Pt to improve active cervical extension ROM to 35 deg without pain. -not met Pt to improve active R cervical rotatino ROM to 55 deg without pain. -met Target Visit 12 Progress Partially Met PT Problem 4 PT Problem #4 Impaired Functional Mobility PT Goal 1 Goal / Goal Update Pt to report 10% or less perceived disability on NDI. Pt to report being able to turn his head further for improved ability to look for cars when driving . Target Visit 12 Progress Not Met
--- NOTE | 2024-11-13 11:59 | PTOPPROG ---
Assessment and note entered by Mally Feliz, PT Evaluation Information Assessment Status Progress ICD-10 Condition Codes (PT) Cervicalgia M54.2 Other ICD-10 Condition Codes ( M48.02, M48.812 PT) Subjective Information Pt reports feeling like he's made some progress in therapy. He reports that his pain isn't as severe , and he has more good days than bad days. He also reports that he hasn't needed to take as many ibuprofen. He does still report significant sleep interference. Assessment PT Clinical Summary Mr. Waters has attended 10 skilled PT visits for cervical region pain. Since beginning therapy He has made progress in his cervical mm strength, cervical ROM and pain severity/frequency. While his pain is reduced and he relies on fewer pain meds, he still experiences neck pain that interferes with his sleep significantly. Continued skilled PT intervention is indicated to address deficits to reduce pain and make further progress toward goals. Plan of Care Interventions Electrical Stimulation,Gait Training,Hot Pack/Cold Pack,Manual Therapy,Neuro Re-education,Patient/ Caregiver Education,Therapeutic Activities, Therapeutic Exercise,Self-Care/Home Management PT Services Indicated Yes Treatment Frequency and Continue per POC Duration These treatments will address the objective and functional deficits as defined above. The patient will be advanced safely and appropriately in order for the patient to progress towards his/her prior level of function. Additional exercises will be introduced and as well as a comprehensive home exercise program upon discharge, if needed, ?to ensure carryover of functional gains achieved in the clinic. This treatment plan has been reviewed and agreement upon by the patient.
--- NOTE | 2024-11-20 11:55 | OPREHPOC ---
Outpatient Therapy Plan of Care This is a Multidisciplinary Plan of Care that may contain components documented by all disciplines (PT, OT, and ST.) PT Problem 1 PT Problem #1 Knowledge Deficit PT Goal 1 Goal / Goal Update Independent and compliant with HEP. Target Visit 2 Progress Met PT Problem 2 PT Problem #2 Impaired Strength PT Goal 1 Goal / Goal Update Pt to improve cervical mm strength to 5/5 without pain. Target Visit 12 Progress Met PT Problem 3 PT Problem #3 Impaired Range of Motion PT Goal 1 Goal / Goal Update Pt to improve active cervical extension ROM to 35 deg without pain. -met Pt to improve active R cervical rotation ROM to 55 deg without pain. -met Target Visit 12 Progress Met PT Problem 4 PT Problem #4 Impaired Functional Mobility PT Goal 1 Goal / Goal Update Pt to report 10% or less perceived disability on NDI. Pt to report being able to turn his head further for improved ability to look for cars when driving . -met Target Visit 12 Progress Partially Met
--- NOTE | 2024-11-20 11:55 | PTOPDC ---
Assessment and note entered by Mally Feliz, PT Evaluation Information Assessment Status Discharge ICD-10 Condition Codes (PT) Cervicalgia M54.2 Other ICD-10 Condition Codes ( M48.02, M48.812 PT) Subjective Information Mr. Waters reports feeling like he's made a lot of improvement with physical therapy. While he still has some pain, it is reduced significantly since starting therapy. He also reports improved postural awareness and he doesn't hike his shoulders up so high. He also notes improvement with turning his head when looking for traffic. He continues to note sleep interference which he attributes to his medication messing up his sleep schedule. Overall he reports feeling improved and ready to finish PT this date to continue his exercises on his own. Reported Pain Level Pain Score 2: Self Report Assessment PT Clinical Summary Mr. Waters has attended 12 skilled PT visits addressing neck and upper back pain. Since starting PT he has made good progress in his cervical strength and AROM and notes reduced pain overall and improvement with turning his head. He does still experience sleep interference due to his medication and plans to follow up with his doctor to discuss this, as well as possibly getting a nerve ablation to help further reduce pain. He has met or partially met all therapeutic goals and is independent with his HEP, and will therefore be discharged from skilled PT this date. Plan of Care PT Services Indicated No
== END 2024-11-20 20:00 | disposition home or self-care (01) ==
LOC: CHSPT 13:45
PROVIDERS: Visit Provider Nurse Practitioner Adult Health
DX: M54.2 Cervicalgia (principal); M48.02 Spinal stenosis, cervical region; M47.812 Spondylosis without myelopathy or radiculopathy, cervical region
CPT/HCPCS: 97014; 97110; 97140; 97161; G0283

== ENCOUNTER 2025-01-15 00:38 | Day surgery (SDC) | payer MEDICARE, SELFPAY ==
[2024-12-24 13:57] VITALS: BMI 26.4
--- OUTSIDE RECORDS SUMMARY | 2025-01-15 00:41 | XMS_ITS | Clinical Summary ---
Author Organization [facility] Address [address] [place] [address] Care Team Providers Care High School Music Teacher Name Role Phone Jeramie Kraus MD [...] Take 1 Tablet by mouth daily. 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 Gender Identity Not on file Sexual Orientation Not on file Occupation Industry Job Start Date Job End Date Not on file Not on file Not on file Not on file Last Filed Vital Signs Vital Sign Reading Time Taken Comments Blood Pressure 158/81 05/08/2018 2:48 PM CDT Pulse 65 05/08/2018 2:48 PM CDT Temperature 36.9 C (98.5 F) 04/06/2018 10:08 AM ASSEMBLER [employer]ES Respiratory Rate 18 04/06/2018 10:08 AM ASSEMBLER [employer]BON BRUSHES Oxygen Saturation 96% 04/06/2018 10:08 AM ASSEMBLER [employer]BON [employer]USHES Inhaled Oxygen Concentration - - Weight 102.1 [...] (1 - 1-dose 75+ series) 2036 Insurance BC BLUE PREFERRED Care Teams High School Music Teacher Relationship Specialty Start Date End Date Jeramie Kraus MD [address] [place] [address] PCP - General Internal Medicine 03/23/18
--- OUTSIDE RECORDS SUMMARY | 2025-01-15 00:41 | XMS_ITS | Clinical Summary ---
Author Organization [facility] Address [address] [place] [address] Care Team Providers Care Rock Crusher Operator Name Role Phone Jeramie Kraus MD Primary Care Provider [phone] Allergies Active Allergy Reactions Criticality Noted Date Comments Codeine Anaphylaxis High 07/17/2015 Penicillins Rash Low 07/17/2015 Medications loratadine-pseu doephedrine ER 10-240 MG 24 hr tablet Active Albuterol Sulfate (PROAIR RESPICLICK) 108 (90 Base) MCG/ACT AEROSOL POWDER, BREATH ACTIVATED Active aspirin EC 81 MG tablet Take 81 mg by mouth daily. Active B Gzsjswc-C-Wsdwb Acid (RENAL) 1 MG Cap Take 1 [...] of 2) 07/23/2011 COVID-19 Vaccine ( - 2024-2 6 season) 2024 Influenza Adult (#1) 2024 RSV Immunization or 60+ Years (1 - 1-dose 75+ series) 2036 Hepatitis A Vaccines Aged Out No long er eligible based on patient's age to complete this topic Meningococcal B Vaccine Aged Out No l onger eligible based on patient's age to complete this topic Meningococcal Vaccine Aged Out No danny keily eligible based on patient's age to complete this topic RSV Immunizations Under 20 Months Aged Out No longer eligible based on patient's age to complete this topic Insurance BLUE CROSS BLUE SHIELD BLUE CROSS BLUE SHIELD Care Teams Rock Crusher Operator Relationship Specialty Start Date End Date Jeramie Kraus MD [address] [place] [address] PCP - General INTERNAL MEDICINE 08/17/18
--- OUTSIDE RECORDS SUMMARY | 2025-01-15 00:42 | XMS_ITS | Patient Health Record ---
Author Organization [facility] Address [address] [place], [place] [id number] Care Team Providers Care Good Humor Vendor Name Role Phone KIT HUFFMAN Unavailable [phone] Jeramie Kraus Unavailable Unavailable Reason For Referral No Information Social History Social History Additional Details Category Social Info Options Details Migrated Social History Migrated Social History History of tobacco use : Current every day smoker , Smoking Status : Current every day smoker , Alcohol intake : Plan Of Treatment No Information Insurance Providers Payer Name Payer Address Payer Phone Subscriber Number Group Number Insured Name Patient Relationship to Insured Coverage Start Date Coverage End Date [facility] ([facility]) ATTN CLAIMS [address] [place] [address] [id number] GURVINDER IRENE Self - patient is the insured
[2025-01-15 12:34] VITALS: BP 145/78; PULSE 73; RESP 20; TEMP 36.6; O2SAT 97; BMI 25.0
--- NOTE | 2025-01-15 12:45 | P.PNAN_ITS ---
Anes - Initial Pre Proc Eval Procedure: Operation Date: 01/15/25 13:30 Proposed Procedures p Screening Colonoscopy - Milton Guerra MD Date/Time: 01/15/25 12:45 Surgeon: Milton Guerra MD Pre Op Diagnosis: Other fecal abnormalities Patient Data Age: 64 Gender: M Height: 1.88 m Weight: 88.6 kg Last Vital Signs Temp 36.6 C 01/15/25 12:34 Pulse 73 01/15/25 12:34 Resp 20 01/15/25 12:34 BP 145/78 H 01/15/25 12:34 Pulse Ox 97 01/15/25 12:34 O2 Del Method Room Air 01/15/25 12:34 Allergies Allergy/AdvReac Type Severity Reaction Status Date / Time codeine Allergy Mild Difficulty Verified 01/15/25 12:31 Breathing penicillin G Allergy Mild Rash Verified 01/15/25 12:31 Home Medications ?Medication ?Instructions ?Recorded ?Confirmed ?Type terazosin 10 mg capsule See Rx Instructions .Route 0 08/27/24 01/15/25 Rx .COMPLEX #90 caps cholecalciferol (vitamin D3) 125 125 mcg PO DAILY #30 caps 09/02/24 01/15/25 Rx mcg (5,000 unit) capsule ferrous sulfate 134 mg (27 mg 134 mg PO DAILY #30 tabs 09/02/24 01/15/25 Rx iron) tablet multivitamin with minerals-folic 1 tablet PO DAILY #30 tabs 09/02/24 01/15/25 Rx acid 400 mcg-lycopene 370 mcg tablet (One-A-Day Men's 50 Plus) omega 3-tos-utp-fish oil 1,200 mg 1 cap PO DAILY #30 c aps 09/02/24 01/15/25 Rx (144 mg-216 mg) capsule (Fish Oil) rosuvastatin 10 mg tablet See Rx Instructions .Route 0 09/12/24 01/15/25 Rx .COMPLEX #90 tabs duloxetine 60 mg capsule,delayed 60 mg PO DAILY #90 ca ps 10/14/24 01/15/25 Rx release fluticasone propionate 50 See Rx Instructions .Route 0 10/21/24 01/15/25 Rx mcg/actuation nasal .COMPLEX #16 mL spray,suspension rizatriptan 10 mg tablet 10 mg PO .COMPLEX PRN migrai ne 11/05/24 12/24/24 Rx headache #20 tabs albuterol sulfate 90 mcg/actuation See Rx Instructions .Route 11/12/24 12/24/24 Rx aerosol inhaler .COMPLEX #8.5 grams levothyroxine 25 mcg tablet See Rx Instructions .Route 11/12/24 01/15/25 Rx .COMPLEX #90 tabs metoprolol tartrate 25 mg tablet 25 mg PO BID 1 month #60 tabs 12/09/24 01/15/25 Rx pantoprazole 40 mg tablet,delayed See Rx Instructions .Route 12/16/24 01/15/25 Rx release .COMPLEX #360 tabs linaclotide 72 mcg capsule 72 mcg Capsule#4 Samples 01/15/25 Sample (Linzess) losartan 100 See Rx Instructions .Route 1 03/01/24 01/15/25 Rx mg-hydrochlorothiazide 12.5 mg .COMPLEX #30 tabs tablet Patient hx anesthesia problems: none Family hx anesthesia problems: none Results Review: All pre-operative results and documents have been reviewed as part of the pre- operative evaluation. [facility] Past Medical History Medical History Irritable bowel syndrome with constipation Constipation Cervical spondylosis Cervical spinal stenosis DDD (degenerative disc disease) DISH (diffuse idiopathic skeletal hyperostosis) Diverticulitis Anemia Hiatal hernia Asthma LEIGHA (obstructive sleep apnea) COPD (chronic obstructive pulmonary disease) Hypertension Hyperlipidemia Social History Social History Years smoked: 40 Smoking status: Former smoker Tobacco type: cigarettes Alcohol intake: never Substance use: current Substance use type: marijuana Other substance usage details: daily marijuana use Lack of Transportation: No Lack of Food: Sometimes True Current Housing: I Have Housing Concerned About Future Housing: No Difficulty Paying Gas/Electric Bills: No Difficulty Paying for Meds: No Currently Unemployed: No Difficulty w/ Childcare or Family Care: No Living arrangements: with family Occupation/Education: other Additional occupation/education comments: 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 Spiritual care concerns: No Anes - Eval Final PreProcedure Day of Procedure 01/15/25 12:45 Patient weight: normal Heart: regular rate and rhythm Lungs: clear to auscultation Airway: Mallampati scale class II Neurological: alert and oriented Last oral intake: >/= 8 hours ASA classification: III Emergent: no Anesthetic plan: proceed Anesthesia type and monitoring: general GIVS and standard monitoring Results Review: All pre-operative results and documents have been reviewed as part of the pre- operative evaluation. Informed Consent: The patient's anesthetic plan and its attendant risks and benefits were discussed with the patient/family/POA. Questions were solicited and answers provided to the satisfaction of the patient/family/POA.
[2025-01-15] MEDS: LACTATED RINGERS 1,000 ML 150 ML IV CONT (12:51)
--- NOTE | 2025-01-15 13:14 | P.HP_ITS ---
History of Present Illness History of Present Illness Consent: Risks, benefits, and alternatives have been discussed and questions answered. Patient agrees to proceed with procedure. Chief complaint: Other fecal abnormalities Narrative: Joe Waters is a 64 year old male with + cologuard, had colonoscopy but years ago Review of Systems Review of Systems: All systems reviewed & are unremarkable except as noted in HPI and below PMFSH Past Medical History Medical History Irritable bowel syndrome with constipation Constipation Cervical spondylosis Cervical spinal stenosis DDD (degenerative disc disease) DISH (diffuse idiopathic skeletal hyperostosis) Diverticulitis Anemia Hiatal hernia Asthma LEIGHA (obstructive sleep apnea) COPD (chronic obstructive pulmonary disease) Hypertension Hyperlipidemia Social History Social History Years smoked: 40 Smoking status: Former smoker Tobacco type: cigarettes Alcohol intake: never Substance use: current Substance use type: marijuana Other substance usage details: daily marijuana use Lack of Transportation: No Lack of Food: Sometimes True Current Housing: I Have Housing Concerned About Future Housing: No Difficulty Paying Gas/Electric Bills: No Difficulty Paying for Meds: No Currently Unemployed: No Difficulty w/ Childcare or Family Care: No Living arrangements: with family Occupation/Education: other Additional occupation/education comments: 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 Spiritual care concerns: No Meds Home Medications and Allergies Home Medications ?Medication ?Instructions ?Recorded ?Confirmed ?Type terazosin 10 mg capsule See Rx Instructions .Route 0 08/27/24 01/15/25 Rx .COMPLEX #90 caps cholecalciferol (vitamin D3) 125 125 mcg PO DAILY #30 caps 09/02/24 01/15/25 Rx mcg (5,000 unit) capsule ferrous sulfate 134 mg (27 mg 134 mg PO DAILY #30 tabs 09/02/24 01/15/25 Rx iron) tablet multivitamin with minerals-folic 1 tablet PO DAILY #30 tabs 09/02/24 01/15/25 Rx acid 400 mcg-lycopene 370 mcg tablet (One-A-Day Men's 50 Plus) omega 9-ags-cum-fish oil 1,200 mg 1 cap PO DAILY #30 c aps 09/02/24 01/15/25 Rx (144 mg-216 mg) capsule (Fish Oil) rosuvastatin 10 mg tablet See Rx Instructions .Route 0 09/12/24 01/15/25 Rx .COMPLEX #90 tabs duloxetine 60 mg capsule,delayed 60 mg PO DAILY #90 ca ps 10/14/24 01/15/25 Rx release fluticasone propionate 50 See Rx Instructions .Route 0 10/21/24 01/15/25 Rx mcg/actuation nasal .COMPLEX #16 mL spray,suspension rizatriptan 10 mg tablet 10 mg PO .COMPLEX PRN migrai ne 11/05/24 12/24/24 Rx headache #20 tabs albuterol sulfate 90 mcg/actuation See Rx Instructions .Route 11/12/24 12/24/24 Rx aerosol inhaler .COMPLEX #8.5 grams levothyroxine 25 mcg tablet See Rx Instructions .Route 11/12/24 01/15/25 Rx .COMPLEX #90 tabs metoprolol tartrate 25 mg tablet 25 mg PO BID 1 month #60 tabs 12/09/24 01/15/25 Rx pantoprazole 40 mg tablet,delayed See Rx Instructions .Route 12/16/24 01/15/25 Rx release .COMPLEX #360 tabs linaclotide 72 mcg capsule 72 mcg Capsule#4 Samples 01/15/25 Sample (Linzess) losartan 100 See Rx Instructions .Route 1 03/01/24 01/15/25 Rx mg-hydrochlorothiazide 12.5 mg .COMPLEX #30 tabs tablet Allergies Allergy/AdvReac Type Severity Reaction Status Date / Time codeine Allergy Mild Difficulty Verified 01/15/25 12:31 Breathing penicillin G Allergy Mild Rash Verified 01/15/25 12:31 Vital Signs Vital Signs - 24 hr 01/15/25 12:34 Temperature 98 F Pulse Rate 73 Respiratory Rate 20 Blood Pressure 145/78 H Pulse Oximetry 97 Oxygen Delivery Room Air Exam Const: General: comfortable and no acute distress HENMT: Face/Nose/Sinus: Normal nares present Eyes: General: appearance normal, both eyes and all related structures Neck: Neck: no JVD Resp: Auscultation: clear to auscultation bilaterally Cardio: Rate: regular rate Rhythm: regular rhythm GI: Inspection: non-distended GI Palp: Yes Soft to palpation Skin: General skin exam: normal color Extrem: General: normal to inspection Psych: Mental Status: mental status grossly normal Assessment and Plan Assessment and plan (1) Positive colorectal cancer screening using Cologuard test: Code(s): R19.5 - Other fecal abnormalities Status: Acute Assessment and Plan: colonoscopy
--- NOTE | 2025-01-15 13:44 | S_PTH ---
PATIENT: Joe Waters LOC: [facility]#:[id number] AGE/SX: 64/M ROOM: RE01/15/[address]: Milton Guerra MD : 1960 BED: DIS: 01/15/2025 SPEC #: [id number] RECD: 01/15/25 14:36 STATUS: KURT REQ #: [id number] SULLY: 01/15/25 13:[address]: Milton Guerra DEPT: [facility] Surgical RECD BY: Brina Del Castillo ENTERED: 01/15/25 14:36 SP TYPE: Surgical OTHR DR: Dannie Nicolas APRN Tissues: A - Colon Polypectomy Procedures: Hematoxylin and Eosin Stain Gross and Microscopic Level 4
[2025-01-15 13:46] VITALS: BP 109/64; PULSE 65; RESP 25; O2SAT 96
[2025-01-15 13:56] VITALS: BP 120/66; PULSE 66; RESP 20; O2SAT 95
[2025-01-15 14:06] VITALS: BP 124/72; PULSE 65; RESP 24; O2SAT 95
== END 2025-01-15 14:18 | disposition home or self-care (01) ==
PROVIDERS: PCP Nurse Practitioner Family; Referring Provider Nurse Practitioner Family; Visit Provider Internal Medicine Gastroenterology
PROC: 0DJD8ZZ Inspection of Lower Intestinal Tract, Via Natural or Artificial Opening Endoscopic (ICD-10-PCS; CPT 45378; principal; 2025-01-15 13:30)
DX: Z12.11 Encounter for screening for malignant neoplasm of colon (principal); D12.0 Benign neoplasm of cecum; R19.5 Other fecal abnormalities; K57.30 Diverticulosis of large intestine without perforation or abscess without bleeding; F12.90 Cannabis use, unspecified, uncomplicated; Z87.891 Personal history of nicotine dependence
CPT/HCPCS: 45385; 88305; J1596; J2003; J2704; J7120